=== PATIENT | male | born 1955 | race African-American/Black ===

== ENCOUNTER 2018-06-14 10:27 | Inpatient (IN) ==
[~2018-06-14 10:27] MED LIST: Iohexol 350 MG/ML 50 ML Vial (for Cath Lab) IVCONTRAST ONE
[2018-06-14] MEDS ORDERED: Heparin 10,000 UNITS/10 ML Vial (for IV use) ONE (10:54)
[2018-06-14] MEDS ORDERED: Heparin 10,000 UNITS/10 ML Vial (for IV use) IV.PUSH STA (10:58)
--- NOTE | 2018-06-14 10:58 | ED ---
HPI General Chief complaint: Chest Pain Stated complaint: Chest Pain Complaint Time Seen by Provider: 06/14/18 10:47 Source: patient Mode of arrival: ambulatory Limitations: no limitations History of Present Illness HPI narrative: 62yo M with PMH of HTN here with c/o chest pain since 5am this morning. Said chest pain is midsternal, severe and nonradiating. Associated with sob, nausea, diaphoresis. Denies any fever, cough, vomiting, abdominal pain, focal weakness or numbness. Related Data Allergies Allergy/AdvReac Type Severity Reaction Status Date / Time No Known Allergies Allergy Verified 06/14/18 10:41 Review of Systems ROS: all other systems reviewed are negative [facility] Medical History Medical History HTN (hypertension) (Acute) Social History Social History Substance History: No History of Abuse Second Hand Smoke Exposure: Yes Smoking Status: Current every day smoker Tobacco Type: Cigars How Often Do You Have a Drink Containing Alcohol: 4 or more times a week Recent Travel in [facility] within the Last 8 Weeks: No Recent Out of Country Travel within the Last 8 Weeks: No Exam Narrative Exam Narrative: GENERAL: 62yo M in severe distress. SKIN: Diaphorectic. HEAD: Atraumatic. Normocephalic. EYES: Pupils equal and round. No scleral icterus. No injection or drainage. ENT: No nasal bleeding or discharge. Mucous membranes pink and moist. NECK: Trachea midline. No JVD. CARDIOVASCULAR: Regular rate and rhythm. No murmur appreciated. RESPIRATORY: No accessory muscle use. Clear to auscultation. Breath sounds equal bilaterally. GASTROINTESTINAL: Abdomen soft, non-tender, nondistended. MUSCULOSKELETAL: No obvious deformities. No clubbing. No cyanosis. No edema. NEUROLOGICAL: Awake and alert. No obvious cranial nerve deficits. Motor grossly within normal limits. Normal speech. PSYCHIATRIC: Appropriate mood and affect; insight and judgment normal. Course Initial Documented Vital Signs Pulse Rate 83 06/14/18 10:33 Respiratory Rate 24 06/14/18 10:33 Blood Pressure 202/120 H 06/14/18 10:33 Pulse Oximetry 98 06/14/18 10:33 Last Documented Vital Signs Temperature 98.4 F 06/14/18 16:00 Pulse Rate 78 06/14/18 16:27 Respiratory Rate 14 06/14/18 16:00 Blood Pressure 104/70 06/14/18 16:00 Pulse Oximetry 96 06/14/18 16:00 Medical Decision Making MDM Narrative Medical decision making narrative: 62yo M with midsternal chest pain. He is very hypertensive and was sublingual nitro was ordered. EKG concerning for STEMI since pt is having active chest pain with nausea and diaphoresis. He may have ischemia secondary to his uncontrolled BP but since he is having active chest pain and ST elevation in anterior leads appears worst than prior, STEMI was called. Dr. Castañeda, sew on operator stationary engineer apprentice is at bedside and recommended nitroglycerin drip at the same time since pt is very hypertensive. Pt given aspirin and heparin bolus. Pt reevaluated at bedside and feels a little better. BP is now down to 168/104. Pt is on nitroglycerin drip. He is to go straight to cardiac pathology laboratory director. Medical Screen Exam Complete: Yes Emergency Medical Condition: Yes Differential Diagnosis Differential Diagnosis: STEMI vs. hypertensive emergency Lab Data Result diagrams: 06/14/18 15:15 06/14/18 15:15 Lab Results 06/14/18 06/14/18 06/14/18 Range/Units 10:55 10:55 10:55 WBC 9.9 (4.0-11.0) th/mm3 RBC 5.24 (4.50-5.90) mil/mm3 Hgb 17.7 H (13.0-17.0) gm/dL POC Hgb (Calc) (13.0-17.0) g/dL Hct 50.4 (39.0-51.0) % POC Hct (39-51.0) % MCV 96.1 (80.0-100.0) fL MCH 33.8 (27.0-34.0) pg MCHC 35.2 (32.0-36.0) % RDW 12.2 (11.6-17.2) % Plt Count 297 (150-450) th/mm3 MPV 7.9 (7.0-11.0) fL Neut % (Auto) 81.2 H (16.0-70.0) % Lymph % (Auto) 11.8 (9.0-44.0) % Ness % (Auto) 6.7 (0.0-8.0) % Eos % (Auto) 0.1 (0.0-4.0) % Baso % (Auto) 0.2 (0.0-2.0) % Neut # (Auto) 8.0 H (1.8-7.7) th/mm3 Lymph # (Auto) 1.2 (1.0-4.8) th/mm3 Ness # (Auto) 0.7 (0.0-0.9) th/mm3 Eos # (Auto) 0.0 (0.0-0.4) th/mm3 Baso # (Auto) 0.0 (0.0-0.2) th/mm3 WBC Differential . Differential Comment Auto diff final PT 10.4 (9.8-11.6) sec INR 1.0 Ratio APTT 23.8 L (24.3-30.1) sec POC Sodium (137-144) mmol/L Sodium (136-145) meq/L POC Potassium (3.6-5.0) mmol/L Potassium (3.5-5.1) meq/L POC Chloride (102-111) mmol/L Chloride (98-107) meq/L Carbon Dioxide (21.0-32.0) meq/L Anion Gap (5-15) meq/L POC BUN (5-21) mg/dL BUN (7-18) mg/dL Creatinine (0.60-1.30) mg/dL POC Creatinine (0.6-1.3) mg/dL Estimated GFR (>89) mL/min POC Glucose (68-110) mg/dL Random Glucose (74-106) mg/dL Calcium 9.2 (8.5-10.1) mg/dL Magnesium 2.4 (1.5-2.5) mg/dL Total Bilirubin (0.2-1.0) mg/dL AST (15-37) U/L ALT (12-78) U/L Alkaline Phosphatase (45-117) U/L Total Creatine Kinase 182 (39-308) U/L CK-MB (CK-2) 3.6 (0.5-3.6) ng/mL Troponin I Less than 0.02 L (0.02-0.05) ng/mL B-Natriuretic Peptide (0-100) pg/mL Total Protein (6.4-8.2) g/dL Albumin (3.4-5.0) g/dL Triglycerides (42-150) mg/dL Cholesterol (120-200) mg/dL LDL Cholesterol, Calc (0-99) mg/dL HDL Cholesterol (40.0-60.0) mg/dL Cholesterol/HDL Ratio Ratio 06/14/18 06/14/18 06/14/18 Range/Units 10:55 10:55 10:55 WBC (4.0-11.0) th/mm3 RBC (4.50-5.90) mil/mm3 Hgb (13.0-17.0) gm/dL POC Hgb (Calc) 16.7 (13.0-17.0) g/dL Hct (39.0-51.0) % POC Hct 49.0 (39-51.0) % MCV (80.0-100.0) fL MCH (27.0-34.0) pg MCHC (32.0-36.0) % RDW (11.6-17.2) % Plt Count (150-450) th/mm3 MPV (7.0-11.0) fL Neut % (Auto) (16.0-70.0) % Lymph % (Auto) (9.0-44.0) % Ness % (Auto) (0.0-8.0) % Eos % (Auto) (0.0-4.0) % Baso % (Auto) (0.0-2.0) % Neut # (Auto) (1.8-7.7) th/mm3 Lymph # (Auto) (1.0-4.8) th/mm3 Ness # (Auto) (0.0-0.9) th/mm3 Eos # (Auto) (0.0-0.4) th/mm3 Baso # (Auto) (0.0-0.2) th/mm3 WBC Differential Differential Comment PT (9.8-11.6) sec INR Ratio APTT (24.3-30.1) sec POC Sodium 135 L (137-144) mmol/L Sodium (136-145) meq/L POC Potassium 3.5 L (3.6-5.0) mmol/L Potassium (3.5-5.1) meq/L POC Chloride 95 L (102-111) mmol/L Chloride (98-107) meq/L Carbon Dioxide (21.0-32.0) meq/L Anion Gap (5-15) meq/L POC BUN 31 H (5-21) mg/dL BUN (7-18) mg/dL Creatinine (0.60-1.30) mg/dL POC Creatinine 1.9 H (0.6-1.3) mg/dL Estimated GFR (>89) mL/min POC Glucose 89 (68-110) mg/dL Random Glucose (74-106) mg/dL Calcium (8.5-10.1) mg/dL Magnesium (1.5-2.5) mg/dL Total Bilirubin (0.2-1.0) mg/dL AST (15-37) U/L ALT (12-78) U/L Alkaline Phosphatase (45-117) U/L Total Creatine Kinase (39-308) U/L CK-MB (CK-2) (0.5-3.6) ng/mL Troponin I (0.02-0.05) ng/mL B-Natriuretic Peptide 28 (0-100) pg/mL Total Protein (6.4-8.2) g/dL Albumin (3.4-5.0) g/dL Triglycerides 142 (42-150) mg/dL Cholesterol 227 H (120-200) mg/dL LDL Cholesterol, Calc 91 (0-99) mg/dL HDL Cholesterol 108.1 H (40.0-60.0) mg/dL Cholesterol/HDL Ratio 2.09 Ratio 06/14/18 06/14/18 Range/Units 15:15 15:15 WBC 8.8 (4.0-11.0) th/mm3 RBC 5.09 (4.50-5.90) mil/mm3 Hgb 17.0 (13.0-17.0) gm/dL POC Hgb (Calc) (13.0-17.0) g/dL Hct 48.8 (39.0-51.0) % POC Hct (39-51.0) % MCV 95.9 (80.0-100.0) fL MCH 33.3 (27.0-34.0) pg MCHC 34.8 (32.0-36.0) % RDW 12.2 (11.6-17.2) % Plt Count 302 (150-450) th/mm3 MPV 8.5 (7.0-11.0) fL Neut % (Auto) (16.0-70.0) % Lymph % (Auto) (9.0-44.0) % Ness % (Auto) (0.0-8.0) % Eos % (Auto) (0.0-4.0) % Baso % (Auto) (0.0-2.0) % Neut # (Auto) (1.8-7.7) th/mm3 Lymph # (Auto) (1.0-4.8) th/mm3 Ness # (Auto) (0.0-0.9) th/mm3 Eos # (Auto) (0.0-0.4) th/mm3 Baso # (Auto) (0.0-0.2) th/mm3 WBC Differential Differential Comment PT (9.8-11.6) sec INR Ratio APTT (24.3-30.1) sec POC Sodium (137-144) mmol/L Sodium 135 L (136-145) meq/L POC Potassium (3.6-5.0) mmol/L Potassium 4.1 (3.5-5.1) meq/L POC Chloride (102-111) mmol/L Chloride 98 (98-107) meq/L Carbon Dioxide 28.1 (21.0-32.0) meq/L Anion Gap 9 (5-15) meq/L POC BUN (5-21) mg/dL BUN 31 H (7-18) mg/dL Creatinine 1.53 H (0.60-1.30) mg/dL POC Creatinine (0.6-1.3) mg/dL Estimated GFR 56 L (>89) mL/min POC Glucose (68-110) mg/dL Random Glucose 86 (74-106) mg/dL Calcium 8.7 (8.5-10.1) mg/dL Magnesium 2.1 (1.5-2.5) mg/dL Total Bilirubin 1.3 H (0.2-1.0) mg/dL AST 32 (15-37) U/L ALT 27 (12-78) U/L Alkaline Phosphatase 117 (45-117) U/L Total Creatine Kinase (39-308) U/L CK-MB (CK-2) (0.5-3.6) ng/mL Troponin I (0.02-0.05) ng/mL B-Natriuretic Peptide (0-100) pg/mL Total Protein 7.9 (6.4-8.2) g/dL Albumin 3.9 (3.4-5.0) g/dL Triglycerides (42-150) mg/dL Cholesterol (120-200) mg/dL LDL Cholesterol, Calc (0-99) mg/dL HDL Cholesterol (40.0-60.0) mg/dL Cholesterol/HDL Ratio Ratio Imaging Data Radiologist's impression: Chest X-Ray 06/14/18 10:53 CONCLUSION: No acute cardiopulmonary abnormality is identified. ECG Data EKG Prior to Arrival: No Attestation: I personally reviewed and interpreted this ECG as follows: Interpretation: NSR 82bpm. 2mm ST elevation in V2, 3mm ST elevation V3. LVH. Mild ST depression inferior lead Discharge Plan Discharge Disposition Patient Disposition: 30 Still Patient Discharge Details Diagnosis: ST elevation myocardial infarction (STEMI) Physicians Team ED Provider: Pippa Corado Primary Care Provider: UNKNOWN, Attending Provider: Timothy Castañeda Other Providers: Romero Gamino ; Karma Berry Status ED Status: Left Department Discharge Information Discharge Date/Time: 06/14/18 11:30
[2018-06-14] MEDS ORDERED: Metoprolol Inj 5 MG/5 ML Vial ONE ×3 (11:00→12:14)
[2018-06-14] MEDS ORDERED: Nitroglycerin Drip Premix 50 MG/250 ML BOTTLE IV.CONT PRN (11:00)
[2018-06-14] MEDS ORDERED: Sod Chloride 0.9% Inj 1,000 ML IV.SIG SCH (11:00)
[2018-06-14 11:16] LABS: Baso % (Auto) 0.2 % (0.0-2.0); Eos % (Auto) 0.1 % (0.0-4.0); Hematocrit 50.4 % (39.0-51.0); Hemoglobin 17.7 gm/dL (13.0-17.0); Lymph # (Auto) 1.2 th/mm3 (1.0-4.8); Lymph % (Auto) 11.8 % (9.0-44.0); Mean Corpuscular HGB Conc 35.2 % (32.0-36.0); Mean Corpuscular Hemoglobin 33.8 pg (27.0-34.0); Mean Corpuscular Volume 96.1 fL (80.0-100.0); Mean Platelet Volume 7.9 fL (7.0-11.0); Mono # (Auto) 0.7 th/mm3 (0.0-0.9); Mono % (Auto) 6.7 % (0.0-8.0); Neut % (Auto) 81.2 % (16.0-70.0); Platelet Count 297 th/mm3 (150-450); Red Blood Count 5.24 mil/mm3 (4.50-5.90); Red Cell Distribution Width 12.2 % (11.6-17.2); White Blood Count 9.9 th/mm3 (4.0-11.0)
[2018-06-14] MEDS ORDERED: Heparin/NS PF Inj 1,000 ML ONE (11:28)
--- NOTE | 2018-06-14 11:29 | XR ---
EXAM DATE: 06/14/2018 11:24 AM EDT AGE/SEX: 62 years / Male INDICATIONS: Code STEMI. Chest pain. CLINICAL DATA: This is the patient's subsequent encounter. Patient reports that signs and symptoms h ave been present for 1 day and indicates a pain score of 7/10. MEDICAL/SURGICAL HISTORY: Cardiovascular disease. None. COMPARISON: . FINDINGS: Portable AP view of the chest demonstrates a normal-sized cardiac silhouette. No effusion, consolidat ion, or pneumothorax is identified. EKG lines overlie the patient. Bones and soft tissues demonstrate no acute abnormality. CONCLUSION: No acute cardiopulmonary abnormality is identified. Electronically signed by: Jamal Mares MD 06/14/2018 11:28 AM EDT
[2018-06-14 11:33] LABS: Activated Partial Thrombo Time 23.8 sec (24.3-30.1); Calcium 9.2 mg/dL (8.5-10.1); Magnesium 2.4 mg/dL (1.5-2.5); Prothrombin Time 10.4 sec (9.8-11.6)
[2018-06-14] MEDS ORDERED: fentaNYL Citrate Inj 100 MCG/2 ML Ampul ONE (11:35)
[2018-06-14 11:36] LABS: Creatine Kinase 182 U/L (39-308)
[2018-06-14] MEDS ORDERED: Lidocaine PF 1% Inj 30 ML Vial ONE (11:41)
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
[2018-06-14 11:49] LABS: Creatine Kinase MB 3.6 ng/mL (0.5-3.6)
[2018-06-14] MEDS ORDERED: Clevidipine Inj 25 MG/50 ML VIAL ONE (12:04)
--- NOTE | 2018-06-14 12:42 | CATHPROC ---
Needish HIS Report Study Information Study Number Admission Scheduled Start Study Start [id number] Jun 14 2018 10:27AM 06/14/2018 Jun 14 2018 11:31AM [place] [facility] Cardiac Catheterization Admit Source Facility Department Emergency department [facility] - Dentistry Professor Physician and Clinical Staff Initial Timothy Ma Head Of Human Resources Funmi Orellana,KAYLA Head Of Human Resources Caryn Ramírez,KAYLA Recorder Leyla Cruz,RT(R) (BS) Scrub Darlene Laguna RCIS TECH2 Procedures Performed Procedure Location (Site) Vessel Name Angiogram LV LV Ventricle Coronary Angiograms LCA Left Coronary Coronary Angiograms RCA Right Coronary L Heart Cath Equipment Time Doctor Of Naprapathy Description Size Mfg Part Number Used/Scraped TRANSDUCER, TRUWAVE [id number] 11:34 ASCENCIO OWENS * Used W/STOCKCOCK *[id number] *[id number] *[id number] PIGTAIL ANG. 145 INFINITI [id number] CATHETER *[id number] 12:13 DAIG/ST. MLEISSA MEDICAL ANGIOSEAL, FR6 VIP FR 6 Used *[id number] 11:34 [employer] BLANKET,WARM AIR CCL * Used *[id number] 11:34 [employer] PACK, CCL CUSTOM * Used *[id number] 11:34 Classting PACER PEN, SKIN DUAL W/ RULER * Used *[id number] 11:34 [employer] SHEATH, FR6.5 PRELUDE 11CM FR 6.5 038ACT Used *[id number] 11:34 [employer] MEDICAL WIRE, 3MMJ .035 180CM 180CM Used *[id number] 11:34 NAMIC MANIFOLD, 4 PORT * Used *[id number] 12:08 NAMIC TUBING, HIGH PRESSURE 48" 48" Used *[id number] 11:34 [employer]ED OMNIPAQUE, 350 MG, 150ML 150ML [id number] Used Equipment Model, Serial, Lot Number and Expiration Data Description Model Number Serial Number Lot Number Expiration Date ANGIOSEAL, FR6 VIP [id number] 01-16-2019 History: Allergies Allergy Reaction No Known Allergies History: Risk Factors Family History of Hypertension Dyslipidemia Previous [place] Previous Heart Failure Premature CAD Yes No No No No Prior Valve Prior PCI Prior CABG Surgery No No No Cerebrovascular Peripheral Artery Chronic Lung On Dialysis Diabetes Disease Disease Disease No No No Yes No History: Symptoms/Diagnosis Selection Items Chest pain History: Stress Tests Stress or Imaging Studies Performed No History: Other Current Smoker Method Yes Cigars Labs Hgb (g/dl) Hct (%) RBC (MIL/MM3) WBC (l/cumm) Platelets (thousands) 11.60-17.00 35.00-51.00 4.00-5.90 4.00-11.00 150.00-450.00 17.7 50.4 5.2 9.9 297 Glucose (mg/dl) BUN (mg/dl) Creatinine (mg/dl) BUN:Creatinine (1:x) 74.00-106.00 7.00-18.00 0.50-1.30 10.00-20.00 89 31 1.9 16.3 Na (meq/l) K (meq/l) 136.00-145.00 3.50-5.10 135 3.5 INR (PTT:PT) 0.90-1.10 1 Troponin I (ng/ml) CPK-MB (ng/ML) 0.02-0.05 0.50-3.60 0.02 3.6 Medication Medication Total Dose (Bolus/Oral) Medication Total Dosage/Unit 1% XYLOCAINE 20 mL LOPRESSOR 10 mg VERSED 2 mg Medications (Bolus/Oral) Medication Time Given Dosage/Unit Administered By Reason 06/14/2018 11:48:50 VERSED 1 mg Funmi Orellana AM 1 mg VERSED given in lab by Funmi Orellana RN via Peripheral IV. 06/14/2018 11:52:32 VERSED 1 mg Caryn Ramírez AM 1 mg VERSED given in lab by Caryn Ramírez RN via Peripheral IV. 06/14/2018 11:53:53 1% XYLOCAINE 20 mL Caryn Ramírez AM 20 mL 1% XYLOCAINE given in lab by Caryn Ramírez RN in Right Groin via Subcutaneous. 06/14/2018 12:09:45 LOPRESSOR 5 mg Funmi Orellana PM 5 mg LOPRESSOR given in lab by Funmi Orellana RN via Peripheral IV. 06/14/2018 12:15:54 LOPRESSOR 5 mg Funmi rOellana PM 5 mg LOPRESSOR given in lab by Funmi Orellana RN via Peripheral IV. Medication (Drip) Medication Time Given Dosage/Unit Concentration/Unit Diluent (ml) Solution 06/14/2018 12:03:39 CLEVIPREX 1 mg/hr 50 mg 100 PM 1 mg/hr CLEVIPREX given in lab by Funmi Orellana RN via Peripheral IV. Pump/Drip Flow = 2 ml/hr usi ng [Solution Name] with a concentration of 50 mg in 100 ml. 06/14/2018 12:05:11 CLEVIPREX 2 mg/hr 50 mg 100 PM 2 mg/hr CLEVIPREX given in lab by Funmi Orellana RN via Peripheral IV. Pump/Drip Flow = 4 ml/hr usi ng [Solution Name] with a concentration of 50 mg in 100 ml. 06/14/2018 12:08:00 CLEVIPREX 4 mg/hr 50 mg 100 PM 4 mg/hr CLEVIPREX given in lab by Funmi Orellana RN via Peripheral IV. Pump/Drip Flow = 8 ml/hr usi ng [Solution Name] with a concentration of 50 mg in 100 ml. 06/14/2018 12:10:52 CLEVIPREX 6 mg/hr 50 mg 100 PM 6 mg/hr CLEVIPREX given in lab by Funmi Orellana RN via Peripheral IV. Pump/Drip Flow = 12 ml/hr us ing [Solution Name] with a concentration of 50 mg in 100 ml. 06/14/2018 12:15:21 CLEVIPREX 8 mg/hr 50 mg 100 PM 8 mg/hr CLEVIPREX given in lab by Funmi Orellana RN via Peripheral IV. Pump/Drip Flow = 16 ml/hr us ing [Solution Name] with a concentration of 50 mg in 100 ml. 06/14/2018 11:49:22 IV Solutions 0 mL (IV) 1000 NaCl .9 AM Patient arrived on IV Solutions in Left Arm via Peripheral IV. Pump/Drip Flow = 30 ml/hr using NaCl . 9. 06/14/2018 11:47:20 NITROGLYCERIN DRIP 10 mcg/min 50 mg 250 D5W AM Patient arrived on 10 mcg/min NITROGLYCERIN DRIP in Right Antecubital via Peripheral IV. Pump/Drip Fl ow = 3 ml/hr using D5W with a concentration of 50 mg in 250 ml. 06/14/2018 11:49:34 NITROGLYCERIN DRIP 20 mcg/min 50 mg 250 D5W AM 20 mcg/min NITROGLYCERIN DRIP given in lab by Caryn Ramírez RN via Peripheral IV. Pump/Drip Flow = 6 ml/hr using D5W with a concentration of 50 mg in 250 ml. NITROGLYCERN DRIP 06/14/2018 12:10:06 0 units/hr 0 STOPPED PM 0 units/hr NITROGLYCERN DRIP STOPPED given in lab by Funmi Orellana, KAYLA. Pump/Drip Flow = 0 ml/hr us ing [Solution Name]. Initial Case Assessment Cardiovascular HR Rhythm NIBP Chest Pain 80 reg 175/133 0 Edema Present Skin color Skin None Normal Warm Dry Circulatory - Right Pulses Dorsalis Pedis Femoral 2 2 Scale (0,1,2,3,4,d) Circulatory - Left Pulses Dorsalis Pedis Femoral 2 2 Scale (0,1,2,3,4,d) Circulatory - Lower Extremities Color Lower Right Color Lower Left Normal Normal Neurological State Oriented to time-place- Alert Moves all extremities person Respiration - General Respiration Rate SpO2 (%) (B/min) 18 96 Chronological Log Time Study Chronological Log 11:33:06 Emergency Room notified that Dentistry Professor is ready. 11:45:08 Patient arrived via Bed. Patient arrived on 10 mcg/min NITROGLYCERIN DRIP in Right Antecubital via Peripheral IV. Pump/D rip Flow = 3 ml/hr 11:47:20 using D5W with a concentration of 50 mg in 250 ml. Vitals capture started with the following parameters, Patient=Adult, Interval=5 min, Initial Pr vcfuxl=610 mmHg, 11:47:56 Deflation Rate=5 mmHg, Cuff placed on Left Arm 11:48:03 Patient Name, D.O.B, / Armband Verified By R.N. 11:48:04 Consent signed by the physician and the patient and verified by the Dentistry Professor staff. 11:48:50 1 mg VERSED given in lab by Funmi Orellana, KAYLA via Peripheral IV. 11:49:06 Pre-op and post- op instructions given; patient acknowledges understanding of instructions. 11:49:09 Presedation assessment performed by Dentistry Professor RN. 11:49:11 Patient has been NPO for More than 6Hrs. 11:49:15 Patient Warmer Placed on the Table. 11:49:16 HR=88 bpm, XVCH=149/133 mmhg, Resp=16 B/min, Pain=0, Marco=10, Yap=2 11:49:17 Disposable Defibrillator Pads Placed On Patient. 11:49:18 Lm Prominences Protected 11:49:19 A # 20 IV was noted in the Antecubital (right). Grade = 0 11:49:21 A # 20 IV was noted in the Upper Arm (left). Grade = 0 11:49:22 Patient arrived on IV Solutions in Left Arm via Peripheral IV. Pump/Drip Flow = 30 ml/hr us ing NaCl .9. 11:49:25 History and physical on the chart or being dictated. Assessment: Initial Case, HR=80 BPM, Rhythm=reg, GSPI=979/133 mmhg, Chest Pain=0, Edema=None, Color=Normal, Skin = Warm, Dry Right Pulses: Erik Ped=2, Femoral=2 Left Pulses: Erik Ped=2, Femoral=2 11:49:26 Lower Right Extremities: Color=Normal Lower Left Extremities: Color=Normal Neurological: State=Alert, Ox3, MARTINEZ Respiration: Resp=18 B/min, SpO2=96 % 11:49:28 Bilateral groins prepped with 2% chlorhexidine, and draped after a 3 minute waiting time. 20 mcg/min NITROGLYCERIN DRIP given in lab by Caryn Ramírez RN via Peripheral IV. Pump/Drip F low = 6 ml/hr 11:49:34 using D5W with a concentration of 50 mg in 250 ml. 11:49:51 Reference ECG taken Time Out. Correct patient, correct procedure, correct physician, labs, allergies, and equipment verified with quality assurance/r&d lab technician 11:50:09 team present. Fire risk assesment completed (see hard stop sheet for coding). Time Out Conc urred by MD and individual staff in procedure. 11:51:02 Case Start 11:52:32 1 mg VERSED given in lab by Caryn Ramírez RN via Peripheral IV. 11:53:39 HR=93 bpm, FOZO=361/100 mmhg, PyC5=643.0 %, Resp=7 B/min, Pain=0, Marco=10, Yap=2 11:53:53 20 mL 1% XYLOCAINE given in lab by Caryn Ramírez RN in Right Groin via Subcutaneous. 11:55:12 Access site was Right Femoral Artery. 11:55:20 A SHEATH, FR6.5 PRELUDE 11CM FR 6.5 was advanced into the Fem Art (right) using the Percuta neous technique. A JL 5.0 INFINITI CATHETER FR 6 was advanced over a wire. OMNIPAQUE, 350 MG, 150ML 150ML was us ed for 11:55:38 injections. Recorded Pressure: Ao, HR=80, Condition=Condition 1 11:56:26 (Aorta) Ao 154/105/126 11:56:39 The LCA was injected and visualized at various angles. OMNIPAQUE, 350 MG, 150ML 150ML used . 11:59:08 HR=80 bpm, CFNE=762/112 mmhg, SpO2=95.0 %, Resp=20 B/min, Pain=0, Marco=10, Yap=2 11:59:08 Catheter was removed A JL 5.0 INFINITI CATHETER FR 6 was advanced over a wire. OMNIPAQUE, 350 MG, 150ML 150ML was us ed for 11:59:09 injections. 12:02:10 The RCA was injected and visualized at various angles. OMNIPAQUE, 350 MG, 150ML 150ML used . 12:03:33 HR=86 bpm, EBYP=354/126 mmhg, SpO2=95.0 %, Resp=15 B/min, Pain=0, Marco=10, Yap=2 1 mg/hr CLEVIPREX given in lab by Funmi Orellana, KAYLA via Peripheral IV. Pump/Drip Flow = 2 ml/ hr using [Solution 12:03:39 Name] with a concentration of 50 mg in 100 ml. 2 mg/hr CLEVIPREX given in lab by Funmi Orellana, KAYLA via Peripheral IV. Pump/Drip Flow = 4 ml/ hr using [Solution 12:05:11 Name] with a concentration of 50 mg in 100 ml. 12:05:53 Catheter was removed A PIGTAIL ANG. 145 INFINITI CATHETER FR 6 was advanced over a wire. OMNIPAQUE, 350 MG, 150ML 15 0ML was 12:06:37 used for injections. 4 mg/hr CLEVIPREX given in lab by Funmi Orellana RN via Peripheral IV. Pump/Drip Flow = 8 ml/ hr using [Solution 12:08:00 Name] with a concentration of 50 mg in 100 ml. Recorded Pressure: LV, HR=93, Condition=Condition 1 12:08:18 (Left Ventricle) LV 168/5/8 12:08:38 HR=86 bpm, GBMN=054/115 mmhg, SpO2=98.0 %, Resp=13 B/min, Pain=0, Marco=10, Yap=2 12:09:27 The LV was injected at 8 cc/sec for a total of 20. OMNIPAQUE, 350 MG, 150ML 150ML used. 12:09:45 5 mg LOPRESSOR given in lab by Funmi Orellana RN via Peripheral IV. 0 units/hr NITROGLYCERN DRIP STOPPED given in lab by Funmi Orellana RN. Pump/Drip Flow = 0 ml /hr using 12:10:06 [Solution Name]. Recorded Pressure: LV, Ao, HR=88, Condition=Condition 1 12:10:07 (Left Ventricle) LV 168/5/9, (Aorta) Ao 175/101/132 6 mg/hr CLEVIPREX given in lab by Funmi Orellana RN via Peripheral IV. Pump/Drip Flow = 12 ml /hr using [Solution 12:10:52 Name] with a concentration of 50 mg in 100 ml. 12:13:37 HR=85 bpm, ZIIM=354/96 mmhg, FzD8=050.0 %, Resp=16 B/min, Pain=0, Marco=10, Yap=2 8 mg/hr CLEVIPREX given in lab by Funmi Orellana RN via Peripheral IV. Pump/Drip Flow = 16 ml /hr using [Solution 12:15:21 Name] with a concentration of 50 mg in 100 ml. 12:15:54 5 mg LOPRESSOR given in lab by Funmi Orellana RN via Peripheral IV. 12:18:34 HR=81 bpm, CRCY=379/100 mmhg, MjF2=976.0 %, Resp=18 B/min, Pain=0, Marco=10, Yap=2 12:19:52 An injection in the Fem Art (right) was made through the SHEATH, FR6.5 PRELUDE 11CM FR 6.5. 12:20:10 Vitals capture stopped. Vitals capture started with the following parameters, Patient=Adult, Interval=2 min, Initial Pr oxferc=842 mmHg, 12:20:25 Deflation Rate=5 mmHg, Cuff placed on Left Arm 12:20:41 ANGIOSEAL, FR6 VIP FR 6 placement in the Fem Art (right) 12:21:44 HR=80 bpm, WQPW=041/111 mmhg, SpO2=94.0 %, Resp=15 B/min, Pain=0, Marco=10, Yap=2 12:23:04 HR=84 bpm, SDNH=265/106 mmhg, SpO2=97.0 %, Resp=10 B/min, Pain=0, Marco=10, Yap=2 12:23:13 Case End (Physician broke scrub) 12:23:28 Catheter(s) removed without difficulty 12:24:07 Sterile dressing applied to site 12:24:08 No case complications noted. 12:24:14 Bedside Report will be given. 12:24:15 Implantable Device card placed in patient's chart. 12:24:22 A Left Heart Cath was performed. 12:25:01 HR=84 bpm, FXMA=706/97 mmhg, Resp=10 B/min, Pain=0, Marco=10, Yap=2 12:27:02 HR=85 bpm, UOEF=895/97 mmhg, Resp=14 B/min, Pain=0, Marco=10, Yap=2 12:29:03 HR=84 bpm, EYVR=799/100 mmhg, SpO2=87.0 %, Resp=10 B/min, Pain=0, Marco=10, Yap=2 12:31:03 HR=86 bpm, QHDJ=388/95 mmhg, SpO2=97.0 %, Resp=17 B/min, Pain=0, Marco=10, Yap=2 12:33:02 HR=81 bpm, WWJC=772/97 mmhg, SpO2=95.0 %, Resp=16 B/min, Pain=0, Marco=10, Yap=2 12:35:01 HR=81 bpm, CVHH=937/95 mmhg, SpO2=96.0 %, Resp=16 B/min, Pain=0, Marco=10, Yap=2 12:37:02 HR=82 bpm, VJIJ=334/92 mmhg, SpO2=97.0 %, Resp=15 B/min, Pain=0, Marco=10, Yap=2 12:39:01 HR=83 bpm, XRAA=690/99 mmhg, SpO2=97.0 %, Resp=14 B/min, Pain=0, Marco=10, Yap=2 12:41:01 HR=84 bpm, FRES=165/101 mmhg, SpO2=98.0 %, Resp=14 B/min, Pain=0, Marco=10, Yap=2 12:42:13 Vitals capture stopped. 12:44:16 [facility] End Study - Contrast Media Used In Study Contrast Total Opened (mL) Total Used (mL) Total Wasted (mL) Omnipaque 45 45 0 End Study - Maximum Contrast Load Max Contrast Load (mL) 167.1 End Study - Radiation Exposure Fluoro Time (minutes) 3.0 End Study - Sheaths Sheaths Pulled By Sheath Hold Time (min) Timothy Castañeda End Study - Patient Disposition Complications Transferred To Interventional Outcome No Critical Care Bed No attempt made
--- NOTE | 2018-06-14 13:25 | P.CONCC ---
History of Present Illness Service: Critical care Consult date: 06/14/18 Requesting Physician: Timothy Castañeda Reason for Consult: Hypertensive emergency Primary Care Provider: UNKNOWN Chief Complaint: Chest pain, Probable STEMI History of Present Illness: Patient is a 62-year-old -[place] male with history of uncontrolled hypertension, alcohol abuse, probable dependence who presented to the emergency department with chest pain. Patient admits that his blood pressure is uncontrolled he is supposed to be on 5 medication but is really not compliant. He also has history of emphysema based on CT scan. EKG showed sinus rhythm, LVH , ST elevation in V2, V3, and V4. Patient was hypertensive with blood pressure in 202/120, started on nitroglycerin infusion and given IV metoprolol. For probable acute STEMI versus early repolarization changes and Dr. Castañeda was emergently contacted. He also received aspirin. Emergently taken to the [facility] showed 50% LAD lesion but no acute obstruction. Post catheterization patient was moved to the CVICU on Cleviprex and critical care medicine was consulted I evaluated the patient in the ICU. Systolic blood pressure is now in 160s his chest pain is improved he is currently on Cleviprex infusion. Patient had been placed on metoprolol 50 mg twice daily and Norvasc 10 mg daily. No RENATA inhibitors due to acute kidney injury. Patient gives a history that he had was on clonidine before but in general had been noncompliant with all the medications. I will place him on clonidine and use as needed IV labetalol to wean Cleviprex. Lipid profile had been ordered. He will be watched closely for alcohol withdrawal as he drinks 6 beers +3-4 drinks of vodka almost daily. Initiate CIWA protocol if necessary Review of Systems All other systems reviewed negative except as stated in HPI PMFSH - History History Provided By: Patient - Medical / Surgical Hx Neg / Unobtainable Medical Problems Denied: Yes - Medical History Medical History: Medical History (Last Updated 06/14/18 @ 10:58 by Sushila Lopez) HTN (hypertension) - Tobacco History Tobacco Use In Past 30 Days: Yes Smoking Status: Current every day smoker Tobacco Type: Cigars - Alcohol History How Often Do You Have a Drink Containing Alcohol: 4 or more times a week - Substance Use History Substance History: No History of Abuse - Travel History Recent Travel in the [facility] Within the Last 8 Weeks: No Recent Travel Out of the Country Within the Last 8 Weeks: No - Immunization History Tetanus Immunization: Unsure Medications and Allergies Active Medications: Active Medications Amlodipine Besylate (Norvasc) 10 mg PO DAILY SHANNON Aspirin (Ecotrin) 81 mg PO DAILY SHANNON Sodium Chloride (Ns Inj) 1,000 mls @ 30 mls/hr IV.SIG .Q24H SHANNON Stop: 06/15/18 10:59 Last Admin: 06/14/18 11:34 Dose: 30 mls/hr Nitroglycerin/Dextrose (Nitroglycerin Drip Premix) 50 mg in 250 mls @ 0 mls/hr IV.CONT TITRATE PRN; Protocol PRN Reason: Per Protocol Last Titration: 06/14/18 12:10 Dose: 0 mcg/min, 0 mls/hr Sodium Chloride (Ns Inj) 1,000 mls @ 100 mls/hr IV.CONT .Q10H SHANNON Metoprolol Tartrate (Lopressor) 50 mg PO BID SHANNON Sodium Chloride (Ns Flush) 2 ml IV.FLUSH PRN PRN PRN Reason: FLUSH AFTER USING IV ACCESS Sodium Chloride (Ns Flush) 2 ml IV.FLUSH PRN PRN PRN Reason: FLUSH AFTER USING IV ACCESS Allergies Allergy/AdvReac Type Severity Reaction Status Date / Time No Known Allergies Allergy Verified 06/14/18 10:41 Physical Exam Vital signs: Vital Signs 06/14/18 10:33 06/14/18 10:45 06/14/18 11:26 Pulse Rate 83 76 Respiratory Rate 24 20 Blood Pressure 202/120 H 168/104 H Pulse Oximetry 98 100 100 Intake & Output 06/13/18 06/14/18 06/14/18 18:59 06:59 18:59 Weight 63.503 kg Narrative: GENERAL: 62 yo -[place] male lying in bed in mild distress SKIN: Dry HEAD: Atraumatic. Normocephalic. EYES: Pupils equal and round. ENT: No nasal bleeding or discharge. NECK: Trachea midline. No JVD. CARDIOVASCULAR: Regular rate and rhythm. No murmur appreciated. No chest wall tenderness. Hypotensive on Cleviprex RESPIRATORY: Clear to auscultation. Breath sounds equal bilaterally. GASTROINTESTINAL: Abdomen soft, non-tender, nondistended. MUSCULOSKELETAL: No obvious deformities. No clubbing. NEUROLOGICAL: Awake and alert. No obvious cranial nerve deficits. Motor grossly within normal limits. Normal speech. Septic Shock Reassessment Septic shock perfusion: reassessment completed Assessment and Plan - Assessment and Plan Plan: ASSESSMENT: Chest pain rule out ACS Hypertensive emergency Kidney injury Hypokalemia Alcohol abuse/dependence Emphysema Smoking PLAN: NEURO: -Watch closely for alcohol withdrawal patient admits to drinking a sixpack beer +3-4 drinks of vodka most days a week -Advised to completely quit drinking -CIWA if there is evidence of withdrawal -Supplement multivitamin thiamine RESP: -DuoNeb every 2 hours as needed -Advised to quit smoking CV: -On arrival blood pressure was 202/120 and was started on nitro infusion -Emergently taken to [facility] for probable STEMI, but catheter showed 50% LAD lesion without obstruction -Currently off nitroglycerin gtt and on Cleviprex gtt. -Started on amlodipine 10 mg daily and metoprolol 50 mg twice daily -Cannot use diuretics or RENATA inhibitors due to acute kidney injury -Normal saline IV fluids at 100 ml per hour -2D echo serial troponins -Check lipid profile, statins if indicated -Continue aspirin -Patient admits to noncompliance with blood pressure medications GI: -Cardiac diet, famotidine : -Monitor renal function closely. Strict intake output -Check renal ultrasound -Normal saline at 100 mL/h ID: -No indication for antibiotics HEME: -Monitor CBC, coags ENDO: -Electrolyte replacement per protocol PROPH: -Bilateral lower extremity SCDs. Lovenox from am/IV famotidine LINES: -Utilize peripheral IVs CC time 35 min Code Status: Full Discussed Condition With: Dr. Castañeda
[2018-06-14] MEDS: amLODIPine 10 MG Tablet PO SCH (13:35)
[2018-06-14] MEDS: Sod Chloride 0.9% Inj 1,000 ML IV.CONT SCH ×2 (13:36→23:06)
[2018-06-14] MEDS: Metoprolol Tartrate 50 MG Tablet PO SCH ×2 (13:36→23:06)
[2018-06-14] MEDS ORDERED: Potassium Chloride 25 MEQ Effervescent Tablet PO PRN (13:37)
[2018-06-14] MEDS ORDERED: Magnesium Oxide 400 MG Tablet PO PRN (13:37)
[2018-06-14] MEDS ORDERED: Potassium Phosphate Inj 30 MMOL in Sodium Chlor 0.9% Inj 250 ML IV.SIG PRN (13:37)
[2018-06-14] MEDS ORDERED: Potassium Chlor 40 mEq Premix 40 MEQ/100 ML PIGGYBACK IV.SIG PRN ×2 (13:37)
[2018-06-14] MEDS ORDERED: Sodium Phosphate Inj 30 MMOL in Sodium Chlor 0.9% Inj 250 ML IV.SIG PRN (13:37)
[2018-06-14] MEDS ORDERED: Potassium Chlor 20 mEq Premix 20 MEQ/100 ML PIGGYBACK IV.SIG PRN ×2 (13:37)
[2018-06-14] MEDS ORDERED: Magnesium Sulfate Inj 2 GM in Sodium Chlor 0.9% Inj 96 ML IV.SIG PRN (13:37)
[2018-06-14] MEDS ORDERED: Potassium Phosphate 500 MG Soluble Tablet PO PRN ×2 (13:37)
[2018-06-14] MEDS ORDERED: Magnesium Sulfate Inj 4 GM in Sodium Chlor 0.9% Inj 92 ML IV.SIG PRN (13:37)
[2018-06-14] MEDS ORDERED: Clevidipine Inj 25 MG/50 ML VIAL IV.CONT PRN (13:38)
[2018-06-14] MEDS ORDERED: Labetalol HCl Inj 100 MG/20 ML Vial IV.PUSH PRN (13:39)
--- NOTE | 2018-06-14 15:08 | MA ---
cc: Timothy Castañeda MD DATE: 06/14/2018 PROCEDURES PERFORMED: Left heart catheterization, left ventriculography, coronary angiography, right femoral angiography with Angio-Seal placement. BRIEF HISTORY: Stan Adams is a 62-year-old man with longstanding hypertension. From his history, it sounds like his blood pressure is poorly controlled. He presented to the ER with acute onset of chest pain at 5:30 in the morning with extremely severe high blood pressure. He had been treated with IV metoprolol and nitroglycerin before arrival to the catheterization lab. On arrival to the catheterization lab, he was still hypertensive. The blood pressure, however, was improved, and the chest pain was already dramatically better. He was prepped and draped in sterile fashion and given a total of 2 mg of IV Versed for sedation. Using 1% lidocaine for local anesthesia, a single stick was required to access the right femoral artery and a 6-[place] sheath placed. Coronary angiography was completed using a 5 Joann for the left coronary artery and a 3DRC for the right coronary artery. I then used an angled pigtail catheter to measure left ventricular pressure followed by left ventriculography and then a pullback. Cleviprex was started. Nitroglycerin was turned off. He received a total of 10 mg of IV metoprolol in the animal laboratory technician and ended up on 8 mcg Cleviprex drip with blood pressures about 140/90-140/80. Chest pain was gone. Angiography did not show any obstructive lesions needing intervention. Angiography was then obtained of the right femoral artery via the sheath followed by uncomplicated Angio-Seal closure with good hemostasis. There were no complications. Total contrast load was 45 mL. HEMODYNAMICS: Left ventricular pressure was 168/5 with an end-diastolic pressure of 9. Aortic pressure is 175/101 with a mean of 132. LEFT VENTRICULOGRAPHY: Left ventriculography shows normal left ventricular function. Estimated ejection fraction is 70%. There are no regional wall motion abnormalities seen. There is no mitral regurgitation seen. I panned over the aorta, and I do not see any dissection of the aorta. CORONARY ANGIOGRAPHY: Left main coronary artery is large and normal appearing. LAD is a large vessel and has a smooth mid stenosis that appears to be about 40%, no worse than 50%. There are 3 separate diagonals. First diagonal is very small and irregular. Second diagonal comes out of the 40% lesion, has about 10% ostial narrowing. The third diagonal is the largest diagonal. This bifurcates. It has about 20% mid irregularity. The remainder of the LAD is tortuous, but normal appearing and does wrap around the LV apex. There is a very small ramus intermediate branch vessel which appears normal. Circumflex artery consists of a large obtuse marginal branch, which appears normal and a very small distal circumflex vessel. The right coronary artery is noted to be dominant and markedly tortuous. It gives off a fairly short PDA branch and a very large posterolateral branch that bifurcates. The distal right coronary artery has an eccentric 30% stenosis with appearance of ulceration. Note that on the left coronary injections, the LAD has sluggish flow relative to the circumflex vessel. CONCLUSIONS: 1. Suspect malignant hypertension. 2. Normal left ventricular end-diastolic pressure. 3. Normal left ventricular systolic function. 4. Mild 2-vessel coronary artery disease with 40%-50% stenosis of the mid LAD and 30% stenosis of the distal right coronary artery. PLAN: Medical management. The patient is currently on a Cleviprex drip at 8 mcg and has received 15 mg total of IV metoprolol. I plan to start amlodipine 10 mg p.o. now and daily, metoprolol 50 mg p.o. now and b.i.d. He has been instructed to quit smoking. We will continue baby aspirin daily. MD SHERI Hurley/ulises , 12:35 PM , 12:46 PM MICHAEL
[2018-06-14 15:56] LABS: Hematocrit 48.8 % (39.0-51.0); Mean Corpuscular HGB Conc 34.8 % (32.0-36.0); Mean Corpuscular Hemoglobin 33.3 pg (27.0-34.0); Mean Corpuscular Volume 95.9 fL (80.0-100.0); Mean Platelet Volume 8.5 fL (7.0-11.0); Platelet Count 302 th/mm3 (150-450); Red Blood Count 5.09 mil/mm3 (4.50-5.90); Red Cell Distribution Width 12.2 % (11.6-17.2); White Blood Count 8.8 th/mm3 (4.0-11.0)
[2018-06-14] MEDS: Multivitamin Inj 10 ML, Thiamine Inj 100 MG, Folic Acid Inj 1 MG in Sodium Chlor 0.9% I... IV.SIG SCH (15:59)
[2018-06-14 16:13] LABS: Chol/HDL Ratio 2.09 Ratio; HDL Cholesterol 108.1 mg/dL (40.0-60.0)
[2018-06-14 16:33] LABS: Alkaline Phosphatase 117 U/L (45-117); Total Protein 7.9 g/dL (6.4-8.2)
[2018-06-14 16:39] LABS: Alanine Aminotransferase 27 U/L (12-78); Albumin 3.9 g/dL (3.4-5.0); Anion Gap 9 meq/L (5-15); Aspartate Aminotransferase 32 U/L (15-37); Blood Urea Nitrogen 31 mg/dL (7-18); Calcium 8.7 mg/dL (8.5-10.1); Carbon Dioxide 28.1 meq/L (21.0-32.0); Chloride 98 meq/L (98-107); Glomerular Filtration Rate 56 mL/min (>89); Glucose,Random 86 mg/dL (74-106); Magnesium 2.1 mg/dL (1.5-2.5); Potassium 4.1 meq/L (3.5-5.1); Sodium 135 meq/L (136-145)
--- NOTE | 2018-06-14 18:00 | ECHRPT ---
Indication: Hypertensive Heart Disease CONCLUSIONS The left ventricular systolic function is normal with an estimated ejection fraction in the range of 55-60%. There is assymetric septal hypertrophy. Normal left ventricular size. Mitral annular calcification is present. Mild mitral valve regurgitation. Aortic valve sclerosis is present. There is trace tricuspid valve regurgitation. BP: / HR: Rhythm: Sinus MEASUREMENTS (Male / Female) Normal Values Technical Quality:Fair 2D ECHO LV Diastolic Diameter PLAX 3.7 cm 4.2 - 5.9 / 3.9 - 5.3 cm LV Systolic Diameter PLAX 2.6 cm IVS Diastolic Thickness 1.9 cm 0.6 - 1.0 / 0.6 - 0.9 cm LVPW Diastolic Thickness 1.0 cm 0.6 - 1.0 / 0.6 - 0.9 cm LV Relative Wall Thickness 0.8 RV Internal Dim ED PLAX 2.8 cm LVOT Diameter 2.1 cm Aortic Root Diameter 2.6 cm LA Systolic Diameter LX 3.1 cm 3.0 - 4.0 / 2.7 - 3.8 cm M-MODE Aortic Root Diameter MM 3.0 cm LA Systolic Diameter MM 3.1 cm LA Ao Ratio MM 1.0 AV Cusp Separation MM 2.0 cm DOPPLER AV Peak Velocity 107.0 cm/s AV Peak Gradient 4.6 mmHg LVOT Peak Velocity 103.0 cm/s LVOT Peak Gradient 4.2 mmHg AV Area Cont Eq pk 3.3 cm MV Area PHT 2.3 cm Mitral E Point Velocity 56.3 cm/s Mitral A Point Velocity 85.4 cm/s Mitral E to A Ratio 0.7 LV E' Lateral Velocity 9.1 cm/s Mitral E to LV E' Lateral Ratio 6.2 LV E' Septal Velocity 6.0 cm/s Mitral E to LV E' Septal Ratio 9.3 FINDINGS LEFT VENTRICLE The left ventricular systolic function is normal with an estimated ejection fraction in the range of 55-60%. There is assymetric septal hypertrophy. Normal left ventricular size. RIGHT VENTRICLE Normal right ventricular size and systolic function. LEFT ATRIUM The left atrial size is normal. RIGHT ATRIUM The right atrial size is normal. ATRIAL SEPTUM Normal atrial septal thickness without atrial level shunting by limited color doppler interrogation. MITRAL VALVE Mitral annular calcification is present. Mild mitral valve regurgitation. AORTIC VALVE Aortic valve sclerosis is present. TRICUSPID VALVE Structurally normal tricuspid valve. There is trace tricuspid valve regurgitation. PULMONARY VALVE No pulmonary valve regurgitation or stenosis. VESSELS The inferior vena cava is normal in size. PERICARDIUM No pericardial effusion. Flor Wu MD, FACC (Electronically Signed) Final Date:14 June 2018 18:00
--- NOTE | 2018-06-14 22:42 | US ---
EXAM DATE: 06/14/2018 10:35 PM EDT AGE/SEX: 62 years / Male INDICATIONS: Increased lab values. CLINICAL DATA: This is the patient's initial encounter. Patient reports that signs and symptoms have been present for 1 day and indicates a pain score of 0/10. MEDICAL/SURGICAL HISTORY: Hypertension. None. COMPARISON: No prior exams available for comparison. MEASUREMENTS: Right Kidney:__8.0 x 5.2 x 4.0 cm Left Kidney:__9.1 x 3.5 x 4.7 cm FINDINGS: Right Kidney: Increased echotexture. No mass or hydronephrosis. Left Kidney: Increased echotexture. No mass or hydronephrosis. Bladder: Within normal limits given the degree of distension. Other: None. CONCLUSION: 1. Increased echotexture characteristic of medical renal disease. No hydronephrosis. No perinephric fluid. Bladder unremarkable. Electronically signed by: Rashard Artis MD 06/14/2018 10:40 PM EDT
--- NOTE | 2018-06-14 23:30 | ECG ---
Date Performed: 06/14/2018 Time Performed: 14:07:54 PTAGE: 62 years EKG: Sinus rhythm Possible right atrial abnormality Possible septal infarct - age undetermined Anterior ST-Elevations Abnormal ECG PRIOR ECG 06/14/18: Compared to PREVIOUS TRACING , Interval evolution of previously noted Anterior ST-Elevations DOCTOR: Antonio Webster Interpretating Date/Time 06/14/2018 23:30:16
--- NOTE | 2018-06-14 23:52 | ECG ---
Date Performed: 06/14/2018 Time Performed: 10:49:37 PTAGE: 62 years EKG: Sinus rhythm RIGHT ATRIAL ENLARGEMENT VOLTAGE CRITERIA FOR LVH POSSIBLE SEPTAL MYOCARDIAL INFARCTION ST ELEVATION , CONSIDER ANTERIOR INJURY ACUTE TX NO PREVIOUS TRACING DOCTOR: Antonio Webster Interpretating Date/Time 06/14/2018 23:50:17
[2018-06-15 04:32] LABS: Baso % (Auto) 0.5 % (0.0-2.0); Eos # (Auto) 0.1 th/mm3 (0.0-0.4); Eos % (Auto) 0.9 % (0.0-4.0); Hematocrit 38.4 % (39.0-51.0); Hemoglobin 13.5 gm/dL (13.0-17.0); Lymph # (Auto) 2.1 th/mm3 (1.0-4.8); Lymph % (Auto) 26.6 % (9.0-44.0); Mean Corpuscular HGB Conc 35.2 % (32.0-36.0); Mean Corpuscular Volume 96.5 fL (80.0-100.0); Mean Platelet Volume 8.2 fL (7.0-11.0); Mono # (Auto) 0.7 th/mm3 (0.0-0.9); Mono % (Auto) 9.3 % (0.0-8.0); Neut # (Auto) 5.1 th/mm3 (1.8-7.7); Neut % (Auto) 62.7 % (16.0-70.0); Platelet Count 223 th/mm3 (150-450); Red Blood Count 3.98 mil/mm3 (4.50-5.90); Red Cell Distribution Width 12.1 % (11.6-17.2); White Blood Count 8.1 th/mm3 (4.0-11.0)
[2018-06-15 05:02] LABS: Alanine Aminotransferase 18 U/L (12-78); Albumin 2.8 g/dL (3.4-5.0); Alkaline Phosphatase 84 U/L (45-117); Anion Gap 9 meq/L (5-15); Aspartate Aminotransferase 16 U/L (15-37); Blood Urea Nitrogen 32 mg/dL (7-18); Calcium 7.9 mg/dL (8.5-10.1); Carbon Dioxide 24.9 meq/L (21.0-32.0); Chloride 103 meq/L (98-107); Glomerular Filtration Rate 63 mL/min (>89); Glucose,Random 76 mg/dL (74-106); Potassium 3.6 meq/L (3.5-5.1); Sodium 137 meq/L (136-145); Total Protein 5.6 g/dL (6.4-8.2); Troponin I 0.03 ng/mL (0.02-0.05)
[2018-06-15] MEDS: amLODIPine 10 MG Tablet PO SCH (08:38)
[2018-06-15] MEDS: Metoprolol Tartrate 50 MG Tablet PO SCH (08:38)
[2018-06-15] MEDS: Enoxaparin Inj 30 MG/0.3 ML Syringe SQ SCH (08:38)
[2018-06-15] MEDS: Sod Chloride 0.9% Inj 1,000 ML IV.CONT SCH ×2 (08:39→18:31)
--- NOTE | 2018-06-15 09:49 | P.PNIM ---
Subjective Interval history: Chief Complaint: Chest pain, Probable STEMI History of Present Illness: Patient is a 62-year-old -[place] male with history of uncontrolled hypertension, alcohol abuse, probable dependence who presented to the emergency department with chest pain. Patient admits that his blood pressure is uncontrolled he is supposed to be on 5 medication but is really not compliant. He also has history of emphysema based on CT scan. EKG showed sinus rhythm, LVH , ST elevation in V2, V3, and V4. Patient was hypertensive with blood pressure in 202/120, started on nitroglycerin infusion and given IV metoprolol. For probable acute STEMI versus early repolarization changes and Dr. Castañeda was emergently contacted. He also received aspirin. Emergently taken to the [facility] showed 50% LAD lesion but no acute obstruction. Post catheterization patient was moved to the CVICU on Cleviprex and critical care medicine was consulted I evaluated the patient in the ICU. Systolic blood pressure is now in 160s his chest pain is improved he is currently on Cleviprex infusion. Patient had been placed on metoprolol 50 mg twice daily and Norvasc 10 mg daily. No RENATA inhibitors due to acute kidney injury. Patient gives a history that he had was on clonidine before but in general had been noncompliant with all the medications. I will place him on clonidine and use as needed IV labetalol to wean Cleviprex. Lipid profile had been ordered. He will be watched closely for alcohol withdrawal as he drinks 6 beers +3-4 drinks of vodka almost daily. Initiate CIWA protocol if necessary 06-15 patient has been transferred to our service today from critical care. Patient's blood pressure is too low will have to back off on some of the medications Discussed with RN and patient Denies any chest pain or palpitations at this time Has a history of being completely medically malignantly noncompliant Does not see doctors Drinks daily Smokes cigarettes Adjust medications decrease metoprolol Physical Exam Vital signs: Vital Signs 06/14/18 10:33 06/14/18 10:45 06/14/18 11:26 Temperature Pulse Rate 83 76 Respiratory Rate 24 20 Blood Pressure 202/120 H 168/104 H Pulse Oximetry 98 100 100 06/14/18 14:23 06/14/18 16:00 06/14/18 16:27 Temperature 98.4 F Pulse Rate 73 78 Respiratory Rate 14 14 Blood Pressure 160/88 H 104/70 Pulse Oximetry 96 96 06/14/18 20:00 06/14/18 21:27 06/15/18 00:00 Temperature 98.6 F 97.9 F Pulse Rate 74 77 Respiratory Rate 18 20 Blood Pressure 127/74 113/70 Pulse Oximetry 99 97 06/15/18 04:00 06/15/18 07:00 06/15/18 07:25 Temperature 98.6 F 98.4 F Pulse Rate 66 63 61 Respiratory Rate 18 16 Blood Pressure 114/66 117/71 Pulse Oximetry 97 06/15/18 09:00 Temperature Pulse Rate 64 Respiratory Rate Blood Pressure Pulse Oximetry Intake & Output 06/14/18 06/15/18 06/15/18 18:59 06:59 18:59 Intake Total 1020 / 1020 1720 / 1720 1511 / 1511 Output Total 850 / 850 Balance 170 / 170 1720 / 1720 1511 / 1511 Weight 63.503 kg 63.5 kg Intake: IV 420 / 420 1000 / 1000 1511 / 1511 Cleviprex Inj 25 mg In 50 ml @ 50 / 50 1 MG/HR 2 mls/hr IV.CONT TITRATE PRN Rx#:[id number] Nitroglycerin Drip Premix 50 mg 20 / 20 In 250 ml @ Per Protocol IV. CONT TITRATE PRN Rx#:[id number] NS Inj 1,000 ML @ 100 mls/hr IV 1000 / 1000 1000 / 1000 .CONT .Q10H [facility] Rx#:[id number] MVI-12 Inj 10 ML Thiamine Inj 511 / 511 100 MG Folvite Inj 1 MG In NS Inj 500 ML @ 125 mls/hr IV.SIG Q24H [facility] Rx#:[id number] KCl 20 mEq Premix Inj 20 meq In 50 / 50 100 ml @ 50 mls/hr IV.SIG Q2H PRN Rx#:[id number] NS Inj 1,000 ML @ 30 mls/hr IV. 300 / 300 SIG .Q24H [facility] Rx#:[id number] Oral 600 / 600 720 / 720 Output: Urine 850 / 850 Other: # Voids 2 Date of Last Bowel Movement 06/14/18 06/15/18 06/15/18 # Bowel Movements 2 Narrative: GENERAL: 62 yo -[place] male lying in bed in mild distress SKIN: Dry no obvious rashes. Warm and dry HEAD: Atraumatic. Normocephalic. EYES: Pupils equal and round. EOMI ENT: No nasal bleeding or discharge. Tongue is midline oropharynx is clear NECK: Trachea midline. No JVD. Supple CARDIOVASCULAR: Regular rate and rhythm. No murmur appreciated. No chest wall tenderness. S1-S2 no S3 or S4 RESPIRATORY: Clear to auscultation. Breath sounds equal bilaterally. GASTROINTESTINAL: Abdomen soft, non-tender, nondistended. MUSCULOSKELETAL: No obvious deformities. No clubbing. NEUROLOGICAL: Awake and alert. No obvious cranial nerve deficits. Motor grossly within normal limits. Normal speech. Results - Labs CBC & Chem 7: 06/15/18 04:01 06/15/18 04:01 Laboratory Results - last 24 hr 06/14/18 06/14/18 06/14/18 10:55 10:55 10:55 WBC 9.9 RBC 5.24 Hgb 17.7 H POC Hgb (Calc) Hct 50.4 POC Hct MCV 96.1 MCH 33.8 MCHC 35.2 RDW 12.2 Plt Count 297 MPV 7.9 Neut % (Auto) 81.2 H Lymph % (Auto) 11.8 [place] % (Auto) 6.7 Eos % (Auto) 0.1 Baso % (Auto) 0.2 Neut # (Auto) 8.0 H Lymph # (Auto) 1.2 [place] # (Auto) 0.7 Eos # (Auto) 0.0 Baso # (Auto) 0.0 WBC Differential . Differential Comment Auto diff final PT 10.4 INR 1.0 APTT 23.8 L POC Sodium Sodium POC Potassium Potassium POC Chloride Chloride Carbon Dioxide Anion Gap POC BUN BUN Creatinine POC Creatinine Estimated GFR POC Glucose Random Glucose Calcium 9.2 Magnesium 2.4 Total Bilirubin AST ALT Alkaline Phosphatase Total Creatine Kinase 182 CK-MB (CK-2) 3.6 Troponin I Less than 0.02 L B-Natriuretic Peptide Total Protein Albumin Triglycerides Cholesterol LDL Cholesterol, Calc HDL Cholesterol Cholesterol/HDL Ratio 06/14/18 06/14/18 06/14/18 10:55 10:55 10:55 WBC RBC Hgb POC Hgb (Calc) 16.7 Hct POC Hct 49.0 MCV MCH MCHC RDW Plt Count MPV Neut % (Auto) Lymph % (Auto) [place] % (Auto) Eos % (Auto) Baso % (Auto) Neut # (Auto) Lymph # (Auto) [place] # (Auto) Eos # (Auto) Baso # (Auto) WBC Differential Differential Comment PT INR APTT POC Sodium 135 L Sodium POC Potassium 3.5 L Potassium POC Chloride 95 L Chloride Carbon Dioxide Anion Gap POC BUN 31 H BUN Creatinine POC Creatinine 1.9 H Estimated GFR POC Glucose 89 Random Glucose Calcium Magnesium Total Bilirubin AST ALT Alkaline Phosphatase Total Creatine Kinase CK-MB (CK-2) Troponin I B-Natriuretic Peptide 28 Total Protein Albumin Triglycerides 142 Cholesterol 227 H LDL Cholesterol, Calc 91 HDL Cholesterol 108.1 H Cholesterol/HDL Ratio 2.09 06/14/18 06/14/18 06/15/18 15:15 15:15 04:01 WBC 8.8 8.1 RBC 5.09 3.98 L Hgb 17.0 13.5 D POC Hgb (Calc) Hct 48.8 38.4 L POC Hct MCV 95.9 96.5 MCH 33.3 34.0 MCHC 34.8 35.2 RDW 12.2 12.1 Plt Count 302 223 MPV 8.5 8.2 Neut % (Auto) 62.7 Lymph % (Auto) 26.6 [place] % (Auto) 9.3 H Eos % (Auto) 0.9 Baso % (Auto) 0.5 Neut # (Auto) 5.1 Lymph # (Auto) 2.1 [place] # (Auto) 0.7 Eos # (Auto) 0.1 Baso # (Auto) 0.0 WBC Differential . Differential Comment Auto diff final PT INR APTT POC Sodium Sodium 135 L POC Potassium Potassium 4.1 POC Chloride Chloride 98 Carbon Dioxide 28.1 Anion Gap 9 POC BUN BUN 31 H Creatinine 1.53 H POC Creatinine Estimated GFR 56 L POC Glucose Random Glucose 86 Calcium 8.7 Magnesium 2.1 Total Bilirubin 1.3 H AST 32 ALT 27 Alkaline Phosphatase 117 Total Creatine Kinase CK-MB (CK-2) Troponin I B-Natriuretic Peptide Total Protein 7.9 Albumin 3.9 Triglycerides Cholesterol LDL Cholesterol, Calc HDL Cholesterol Cholesterol/HDL Ratio 06/15/18 04:01 WBC RBC Hgb POC Hgb (Calc) Hct POC Hct MCV MCH MCHC RDW Plt Count MPV Neut % (Auto) Lymph % (Auto) [place] % (Auto) Eos % (Auto) Baso % (Auto) Neut # (Auto) Lymph # (Auto) [place] # (Auto) Eos # (Auto) Baso # (Auto) WBC Differential Differential Comment PT INR APTT POC Sodium Sodium 137 POC Potassium Potassium 3.6 POC Chloride Chloride 103 Carbon Dioxide 24.9 Anion Gap 9 POC BUN BUN 32 H Creatinine 1.37 H POC Creatinine Estimated GFR 63 L POC Glucose Random Glucose 76 Calcium 7.9 L D Magnesium 2.0 Total Bilirubin 1.2 H AST 16 ALT 18 Alkaline Phosphatase 84 Total Creatine Kinase CK-MB (CK-2) Troponin I 0.03 B-Natriuretic Peptide Total Protein 5.6 L D Albumin 2.8 L D Triglycerides Cholesterol LDL Cholesterol, Calc HDL Cholesterol Cholesterol/HDL Ratio - Imaging Impressions Abdomen/Bladder Ultrasound 06/14/18 00:00 CONCLUSION: 1. Increased echotexture characteristic of medical renal disease. No hydronephrosis. No perinephric fluid. Bladder unremarkable. Chest X-Ray 06/14/18 10:53 CONCLUSION: No acute cardiopulmonary abnormality is identified. - Procedures None Assessment and Plan - Plan ASSESSMENT: Chest pain rule out ACS Hypertensive emergency Kidney injury Hypokalemia Alcohol abuse/dependence Emphysema Smoking PLAN: NEURO: -Watch closely for alcohol withdrawal patient admits to drinking a sixpack beer +3-4 drinks of vodka most days a week -Advised to completely quit drinking -CIWA if there is evidence of withdrawal -Supplement multivitamin thiamine RESP: -DuoNeb every 2 hours as needed -Advised to quit smoking CV: -On arrival blood pressure was 202/120 and was started on nitro infusion -Emergently taken to [facility] for probable STEMI, but catheter showed 50% LAD lesion without obstruction -Currently off nitroglycerin gtt and on Cleviprex gtt. -Started on amlodipine 10 mg daily and metoprolol 25 mg twice daily -Cannot use diuretics or RENATA inhibitors due to acute kidney injury -Normal saline IV fluids at 100 ml per hour -2D echo serial troponins -Check lipid profile, statins if indicated -Continue aspirin -Patient admits to noncompliance with blood pressure medications Hold Catapres if his systolic blood pressure is under 130 GI: -Cardiac diet, famotidine : -Monitor renal function closely. Strict intake output -Check renal ultrasound -Normal saline at 100 mL/h ID: -No indication for antibiotics HEME: -Monitor CBC, coags ENDO: -Electrolyte replacement per protocol PROPH: -Bilateral lower extremity SCDs. Lovenox from am/IV famotidine LINES: -Utilize peripheral IVs Code Status: Full code Discussed Condition With: RN and patient Discharge Planning: Once blood pressure is stable
[2018-06-15 11:17] LABS: Free T4 (Free Thyroxine) 1.04 ng/dL (0.76-1.46); Thyroid Stimulating Hormone 1.25 uIU/mL (0.358-3.740)
--- NOTE | 2018-06-15 11:57 | P.PNCA ---
Subjective Interval history: No complaints Medications and Allergies Active Medications: Active Medications Albuterol (Duoneb Neb (Prn)) 1 ampul NEB Q2HR NEB PRN PRN Reason: SHORTNESS OF BREATH Amlodipine Besylate (Norvasc) 10 mg PO DAILY [facility] Last Admin: 06/15/18 08:38 Dose: 10 mg Aspirin (Ecotrin) 81 mg PO DAILY [facility] Last Admin: 06/15/18 08:38 Dose: 81 mg Enoxaparin Sodium (Lovenox Inj) 30 mg SQ DAILY [facility] Last Admin: 06/15/18 08:38 Dose: 30 mg Sodium Chloride (Ns Inj) 1,000 mls @ 100 mls/hr IV.CONT .Q10H [facility] Last Admin: 06/15/18 08:39 Dose: 100 mls/hr Multivitamins 10 ml/ Thiamine HCl 100 mg/ Folic Acid 1 mg/Sodium Chloride 511.2 mls @ 125 mls/hr IV.SIG Q24H [facility] Stop: 06/16/18 19:06 Last Infusion: 06/15/18 07:01 Dose: 0 mls/hr Potassium Chloride (Kcl 40 Meq Premix Inj) 40 meq in 100 mls @ 25 mls/hr IV.SIG Q2H PRN PRN Reason: For Potassium 2.8 - 3.2 mEq/L Potassium Chloride (Kcl 20 Meq Premix Inj) 20 meq in 100 mls @ 50 mls/hr IV.SIG Q2H PRN PRN Reason: For Potassium 3.3 - 3.5 mEq/L Last Infusion: 06/14/18 17:37 Dose: 0 mls/hr Potassium Chloride (Kcl 40 Meq Premix Inj) 40 meq in 100 mls @ 25 mls/hr IV.SIG UNSCH PRN PRN Reason: For Potassium 3.3 - 3.5 mEq/L Sodium Phosphate 30 mmol/ (Sodium Chloride) 260 mls @ 42 mls/hr IV.SIG UNSCH PRN PRN Reason: For Phosphorus < 2.5 mg/dL Potassium Phosphate 30 mmol/ (Sodium Chloride) 260 mls @ 42 mls/hr IV.SIG UNSCH PRN PRN Reason: SEE LABEL COMMENTS Magnesium Sulfate 4 gm/ Sodium (Chloride) 100 mls @ 50 mls/hr IV.SIG UNSCH PRN PRN Reason: For Magnesium 0.9 - 1.1 mg/dL Potassium Chloride (Kcl 20 Meq Premix Inj) 20 meq in 100 mls @ 50 mls/hr IV.SIG Q2H PRN PRN Reason: For Potassium 2.8 - 3.2 mEq/L Magnesium Sulfate 2 gm/ Sodium (Chloride) 100 mls @ 50 mls/hr IV.SIG UNSCH PRN PRN Reason: For Magnesium 1.2 - 1.6 mg/dL Labetalol HCl (Trandate Inj) 20 mg IV.PUSH Q4H PRN PRN Reason: SBP>160, DBP>90 Magnesium Oxide (Mag-Ox) 800 mg PO UNSCH PRN PRN Reason: For Magnesium 1.2 - 1.6 mg/dL Metoprolol Tartrate (Lopressor) 25 mg PO BID [facility] Potassium Bicarb/Potassium Chloride (K-Lyte Cl Eff) 50 meq PO UNSCH PRN PRN Reason: For Potassium 3.3 - 3.5 mEq/L Last Admin: 06/14/18 16:22 Dose: 50 meq Potassium Phosphate (K-Phos Original) 2,000 mg PO Q4H PRN PRN Reason: Phosphorus Less Than 2.5 mg/dL Potassium Phosphate (K-Phos Original) 2,000 mg PO UNSCH PRN PRN Reason: SEE LABEL COMMENTS Sodium Chloride (Ns Flush) 2 ml IV.FLUSH PRN PRN PRN Reason: FLUSH AFTER USING IV ACCESS Sodium Chloride (Ns Flush) 2 ml IV.FLUSH PRN PRN PRN Reason: FLUSH AFTER USING IV ACCESS Allergies Allergy/AdvReac Type Severity Reaction Status Date / Time No Known Allergies Allergy Verified 06/14/18 10:41 Physical Exam Vital signs: Vital Signs 06/14/18 14:23 06/14/18 16:00 06/14/18 16:27 Temperature 98.4 F Pulse Rate 73 78 Respiratory Rate 14 14 Blood Pressure 160/88 H 104/70 Pulse Oximetry 96 96 06/14/18 20:00 06/14/18 21:27 06/15/18 00:00 Temperature 98.6 F 97.9 F Pulse Rate 74 77 Respiratory Rate 18 20 Blood Pressure 127/74 113/70 Pulse Oximetry 99 97 06/15/18 04:00 06/15/18 07:00 06/15/18 07:25 Temperature 98.6 F 98.4 F Pulse Rate 66 63 61 Respiratory Rate 18 16 Blood Pressure 114/66 117/71 Pulse Oximetry 97 06/15/18 09:00 Temperature Pulse Rate 64 Respiratory Rate Blood Pressure Pulse Oximetry Intake & Output 06/14/18 06/15/18 06/15/18 18:59 06:59 18:59 Intake Total 1020 / 1020 1720 / 1720 1511 / 1511 Output Total 850 / 850 Balance 170 / 170 1720 / 1720 1511 / 1511 Weight 63.503 kg 63.5 kg Intake: IV 420 / 420 1000 / 1000 1511 / 1511 Cleviprex Inj 25 mg In 50 ml @ 50 / 50 1 MG/HR 2 mls/hr IV.CONT TITRATE PRN Rx#:[id number] Nitroglycerin Drip Premix 50 mg 20 / 20 In 250 ml @ Per Protocol IV. CONT TITRATE PRN Rx#:[id number] NS Inj 1,000 ML @ 100 mls/hr IV 1000 / 1000 1000 / 1000 .CONT .Q10H [facility] Rx#:[id number] MVI-12 Inj 10 ML Thiamine Inj 511 / 511 100 MG Folvite Inj 1 MG In NS Inj 500 ML @ 125 mls/hr IV.SIG Q24H [facility] Rx#:[id number] KCl 20 mEq Premix Inj 20 meq In 50 / 50 100 ml @ 50 mls/hr IV.SIG Q2H PRN Rx#:[id number] NS Inj 1,000 ML @ 30 mls/hr IV. 300 / 300 SIG .Q24H [facility] Rx#:[id number] Oral 600 / 600 720 / 720 Output: Urine 850 / 850 Other: # Voids 2 Date of Last Bowel Movement 06/14/18 06/15/18 06/15/18 # Bowel Movements 2 Narrative: Alert Chest clear CV S1S2 RRR Abd soft Right groin OK Ext no edema Results 06/15/18 04:01 06/15/18 04:01 Cardiac Enzymes 06/14/18 06/14/18 06/14/18 Range/Units 10:55 10:55 15:15 AST 32 (15-37) U/L CK-MB (CK-2) 3.6 (0.5-3.6) ng/mL Troponin I Less than 0.02 L (0.02-0.05) ng/mL B-Natriuretic Peptide 28 (0-100) pg/mL 06/15/18 Range/Units 04:01 AST 16 (15-37) U/L CK-MB (CK-2) (0.5-3.6) ng/mL Troponin I 0.03 (0.02-0.05) ng/mL B-Natriuretic Peptide (0-100) pg/mL Coagulation 06/14/18 06/14/18 Range/Units 10:55 10:55 PT 10.4 (9.8-11.6) sec APTT 23.8 L (24.3-30.1) sec B-Natriuretic Peptide 28 (0-100) pg/mL Lipids 06/14/18 Range/Units 10:55 Triglycerides 142 (42-150) mg/dL Cholesterol 227 H (120-200) mg/dL HDL Cholesterol 108.1 H (40.0-60.0) mg/dL Cholesterol/HDL Ratio 2.09 Ratio CBC 06/14/18 06/14/18 06/15/18 Range/Units 10:55 15:15 04:01 WBC 9.9 8.8 8.1 (4.0-11.0) th/mm3 RBC 5.24 5.09 3.98 L (4.50-5.90) mil/mm3 Hgb 17.7 H 17.0 13.5 D (13.0-17.0) gm/dL Hct 50.4 48.8 38.4 L (39.0-51.0) % Plt Count 297 302 223 (150-450) th/mm3 Neut # (Auto) 8.0 H 5.1 (1.8-7.7) th/mm3 Lymph # (Auto) 1.2 2.1 (1.0-4.8) th/mm3 [place] # (Auto) 0.7 0.7 (0.0-0.9) th/mm3 Eos # (Auto) 0.0 0.1 (0.0-0.4) th/mm3 Baso # (Auto) 0.0 0.0 (0.0-0.2) th/mm3 Comprehensive Metabolic Panel 06/14/18 06/14/18 06/15/18 Range/Units 10:55 15:15 04:01 Sodium 135 L 137 (136-145) meq/L Potassium 4.1 3.6 (3.5-5.1) meq/L Chloride 98 103 (98-107) meq/L Carbon Dioxide 28.1 24.9 (21.0-32.0) meq/L BUN 31 H 32 H (7-18) mg/dL Creatinine 1.53 H 1.37 H (0.60-1.30) mg/dL Calcium 9.2 8.7 7.9 L D (8.5-10.1) mg/dL AST 32 16 (15-37) U/L ALT 27 18 (12-78) U/L Alkaline Phosphatase 117 84 (45-117) U/L Total Protein 7.9 5.6 L D (6.4-8.2) g/dL Albumin 3.9 2.8 L D (3.4-5.0) g/dL Intake and Output 06/14/18 06/15/18 06/15/18 22:59 06:59 14:59 Intake Total 1020 / 1020 1720 / 1720 1511 / 1511 Output Total 850 / 850 Balance 170 / 170 1720 / 1720 1511 / 1511 Intake: IV 420 / 420 1000 / 1000 1511 / 1511 Cleviprex Inj 25 mg In 50 ml @ 50 / 50 1 MG/HR 2 mls/hr IV.CONT TITRATE PRN Rx#:[id number] Nitroglycerin Drip Premix 50 mg 20 / 20 In 250 ml @ Per Protocol IV. CONT TITRATE PRN Rx#:[id number] NS Inj 1,000 ML @ 100 mls/hr IV 1000 / 1000 1000 / 1000 .CONT .Q10H [facility] Rx#:[id number] MVI-12 Inj 10 ML Thiamine Inj 511 / 511 100 MG Folvite Inj 1 MG In NS Inj 500 ML @ 125 mls/hr IV.SIG Q24H [facility] Rx#:[id number] KCl 20 mEq Premix Inj 20 meq In 50 / 50 100 ml @ 50 mls/hr IV.SIG Q2H PRN Rx#:[id number] NS Inj 1,000 ML @ 30 mls/hr IV. 300 / 300 SIG .Q24H [facility] Rx#:[id number] Oral 600 / 600 720 / 720 Output: Urine 850 / 850 Other: # Voids 2 Date of Last Bowel Movement 06/15/18 06/15/18 06/15/18 # Bowel Movements 2 Weight 63.5 kg - Imaging and Cardiology Imaging: Impressions Abdomen/Bladder Ultrasound 06/14/18 00:00 CONCLUSION: 1. Increased echotexture characteristic of medical renal disease. No hydronephrosis. No perinephric fluid. Bladder unremarkable. Chest X-Ray 06/14/18 10:53 CONCLUSION: No acute cardiopulmonary abnormality is identified. Assessment and Plan - Assessment (1) Malignant hypertension Code(s): I10 - Essential (primary) hypertension Status: Acute Plan: Stop clonidine - too risky with intermittent use of BP meds (2) Chronic kidney disease, stage 3 Code(s): N18.3 - Chronic kidney disease, stage 3 (moderate) Status: Acute (3) Noncompliance w/medication treatment due to intermit use of medication Code(s): Z91.14 - Patient's other noncompliance with medication regimen Status : Acute (4) Tobacco abuse Code(s): Z72.0 - Tobacco use Status: Acute Plan: counseled (5) 2-vessel coronary artery disease Code(s): I25.10 - Atherosclerotic heart disease of [place] coronary artery without angina pectoris Status: Acute Plan: Stenoses are not > 50%. Medical management
[2018-06-15 13:54] LABS: Hemoglobin A1c 6.2 % (4.3-6.0)
[2018-06-15] MEDS: Multivitamin Inj 10 ML, Thiamine Inj 100 MG, Folic Acid Inj 1 MG in Sodium Chlor 0.9% I... IV.SIG SCH (15:38)
[2018-06-15] MEDS: Metoprolol Tartrate 25 MG Tablet PO SCH (20:23)
[2018-06-16] MEDS: Sod Chloride 0.9% Inj 1,000 ML IV.CONT SCH (04:05)
[2018-06-16 05:53] LABS: Baso % (Auto) 0.5 % (0.0-2.0); Eos # (Auto) 0.1 th/mm3 (0.0-0.4); Eos % (Auto) 1.4 % (0.0-4.0); Hematocrit 40.8 % (39.0-51.0); Hemoglobin 14.5 gm/dL (13.0-17.0); Lymph # (Auto) 1.7 th/mm3 (1.0-4.8); Lymph % (Auto) 21.9 % (9.0-44.0); Mean Corpuscular HGB Conc 35.5 % (32.0-36.0); Mean Corpuscular Hemoglobin 33.8 pg (27.0-34.0); Mean Corpuscular Volume 95.2 fL (80.0-100.0); Mean Platelet Volume 8.5 fL (7.0-11.0); Mono # (Auto) 0.8 th/mm3 (0.0-0.9); Mono % (Auto) 10.6 % (0.0-8.0); Neut # (Auto) 5.2 th/mm3 (1.8-7.7); Neut % (Auto) 65.6 % (16.0-70.0); Platelet Count 239 th/mm3 (150-450); Red Blood Count 4.28 mil/mm3 (4.50-5.90); Red Cell Distribution Width 11.8 % (11.6-17.2)
[2018-06-16 06:11] LABS: Alanine Aminotransferase 21 U/L (12-78); Albumin 2.8 g/dL (3.4-5.0); Anion Gap 7 meq/L (5-15); Aspartate Aminotransferase 17 U/L (15-37); Blood Urea Nitrogen 18 mg/dL (7-18); Chloride 102 meq/L (98-107); Glomerular Filtration Rate 78 mL/min (>89); Glucose,Random 86 mg/dL (74-106); Magnesium 1.7 mg/dL (1.5-2.5); Potassium 3.3 meq/L (3.5-5.1); Sodium 137 meq/L (136-145)
[2018-06-16 06:16] LABS: Alkaline Phosphatase 90 U/L (45-117); Phosphorus 2.7 mg/dL (2.5-4.9); Total Protein 5.5 g/dL (6.4-8.2)
[2018-06-16] MEDS ORDERED: Iohexol 350 MG/ML 50 ML Vial (for Cath Lab) IVCONTRAST ONE (08:19)
[2018-06-16] MEDS: Metoprolol Tartrate 25 MG Tablet PO SCH (08:38)
[2018-06-16] MEDS: Enoxaparin Inj 30 MG/0.3 ML Syringe SQ SCH (08:38)
[2018-06-16] MEDS: amLODIPine 10 MG Tablet PO SCH (08:38)
[2018-06-16] MEDS ORDERED: Metoprolol Tartrate 25 MG Tablet PO SCH ×2 (09:13→21:00)
[2018-06-16 09:52] VITALS: RESP 20; O2SAT 100
--- NOTE | 2018-06-16 09:54 | P.PNIM ---
Subjective Interval history: Chief Complaint: Chest pain, Probable STEMI History of Present Illness: Patient is a 62-year-old -[place] male with history of uncontrolled hypertension, alcohol abuse, probable dependence who presented to the emergency department with chest pain. Patient admits that his blood pressure is uncontrolled he is supposed to be on 5 medication but is really not compliant. He also has history of emphysema based on CT scan. EKG showed sinus rhythm, LVH , ST elevation in V2, V3, and V4. Patient was hypertensive with blood pressure in 202/120, started on nitroglycerin infusion and given IV metoprolol. For probable acute STEMI versus early repolarization changes and Dr. Castañeda was emergently contacted. He also received aspirin. Emergently taken to the Optical Assistant showed 50% LAD lesion but no acute obstruction. Post catheterization patient was moved to the CVICU on Cleviprex and critical care medicine was consulted I evaluated the patient in the ICU. Systolic blood pressure is now in 160s his chest pain is improved he is currently on Cleviprex infusion. Patient had been placed on metoprolol 50 mg twice daily and Norvasc 10 mg daily. No RENATA inhibitors due to acute kidney injury. Patient gives a history that he had was on clonidine before but in general had been noncompliant with all the medications. I will place him on clonidine and use as needed IV labetalol to wean Cleviprex. Lipid profile had been ordered. He will be watched closely for alcohol withdrawal as he drinks 6 beers +3-4 drinks of vodka almost daily. Initiate CIWA protocol if necessary 06-15 patient has been transferred to our service today from critical care. Patient's blood pressure is too low will have to back off on some of the medications Discussed with RN and patient Denies any chest pain or palpitations at this time Has a history of being completely medically malignantly noncompliant Does not see doctors Drinks daily Smokes cigarettes Adjust medications decrease metoprolol 06-16 MEDICATIONS HAVE BEEN ADJUSTED WANTS TO GO HOME NO CHEST PAIN DW RN AND PT DC TO HOME TODAY Physical Exam Vital signs: Vital Signs 06/15/18 12:00 06/15/18 12:02 06/15/18 15:41 Temperature 98.3 F 98.7 F Pulse Rate 65 67 62 Respiratory Rate 14 16 Blood Pressure 105/60 129/83 Pulse Oximetry 94 L 06/15/18 16:00 06/15/18 20:00 06/15/18 23:00 Temperature 98.5 F Pulse Rate 66 62 64 Respiratory Rate 16 Blood Pressure 151/87 H Pulse Oximetry 97 06/16/18 00:00 06/16/18 01:00 06/16/18 02:00 Temperature 98.7 F Pulse Rate 64 63 56 L Respiratory Rate 16 Blood Pressure 143/86 H Pulse Oximetry 99 06/16/18 03:00 06/16/18 03:13 06/16/18 04:00 Temperature 98.7 F Pulse Rate 63 65 58 L Respiratory Rate 16 Blood Pressure 142/89 H Pulse Oximetry 99 06/16/18 05:00 06/16/18 05:56 06/16/18 08:00 Temperature 98.0 F Pulse Rate 59 L 60 74 Respiratory Rate 18 Blood Pressure 184/103 H Pulse Oximetry 100 Intake & Output 06/15/18 06/16/18 06/16/18 18:59 06:59 18:59 Intake Total 3151.2 / 3151.2 991.2 / 991.2 Output Total 1000 / 1000 950 / 950 Balance 2151.2 / 2151.2 41.2 / 41.2 Intake: IV 2511.2 / 2511.2 511.2 / 511.2 NS Inj 1,000 ML @ 100 mls/hr IV 1999 / 1999 .CONT .Q10H [facility] Rx#:[id number] MVI-12 Inj 10 ML Thiamine Inj 511.2 / 511.2 511.2 / 511.2 100 MG Folvite Inj 1 MG In NS Inj 500 ML @ 125 mls/hr IV.SIG Q24H [facility] Rx#:[id number] Oral 640 / 640 480 / 480 Output: Urine 1000 / 1000 950 / 950 Other: # Voids 3 Date of Last Bowel Movement 06/15/18 06/15/18 # Bowel Movements 1 Narrative: GENERAL: 62 yo -[place] male lying in bed in mild distress SKIN: Dry no obvious rashes. Warm and dry HEAD: Atraumatic. Normocephalic. EYES: Pupils equal and round. EOMI ENT: No nasal bleeding or discharge. Tongue is midline oropharynx is clear NECK: Trachea midline. No JVD. Supple CARDIOVASCULAR: Regular rate and rhythm. No murmur appreciated. No chest wall tenderness. S1-S2 no S3 or S4 RESPIRATORY: Clear to auscultation. Breath sounds equal bilaterally. GASTROINTESTINAL: Abdomen soft, non-tender, nondistended. MUSCULOSKELETAL: No obvious deformities. No clubbing. NEUROLOGICAL: Awake and alert. No obvious cranial nerve deficits. Motor grossly within normal limits. Normal speech. Results - Labs CBC & Chem 7: 06/16/18 04:56 06/16/18 04:56 Laboratory Results - last 24 hr 06/15/18 06/15/18 06/15/18 04:01 04:01 04:01 WBC RBC Hgb Hct MCV MCH MCHC RDW Plt Count MPV Neut % (Auto) Lymph % (Auto) [place] % (Auto) Eos % (Auto) Baso % (Auto) Neut # (Auto) Lymph # (Auto) [place] # (Auto) Eos # (Auto) Baso # (Auto) WBC Differential Differential Comment Sodium Potassium Chloride Carbon Dioxide Anion Gap BUN Creatinine Estimated GFR Random Glucose Hemoglobin A1c 6.2 H Calcium Phosphorus Magnesium Total Bilirubin AST ALT Alkaline Phosphatase Total Protein Albumin TSH 1.250 Cancelled Free T4 1.04 06/16/18 06/16/18 04:56 04:56 WBC 8.0 RBC 4.28 L Hgb 14.5 Hct 40.8 MCV 95.2 MCH 33.8 MCHC 35.5 RDW 11.8 Plt Count 239 MPV 8.5 Neut % (Auto) 65.6 Lymph % (Auto) 21.9 [place] % (Auto) 10.6 H Eos % (Auto) 1.4 Baso % (Auto) 0.5 Neut # (Auto) 5.2 Lymph # (Auto) 1.7 [place] # (Auto) 0.8 Eos # (Auto) 0.1 Baso # (Auto) 0.0 WBC Differential . Differential Comment Auto diff final Sodium 137 Potassium 3.3 L Chloride 102 Carbon Dioxide 28.0 Anion Gap 7 BUN 18 Creatinine 1.14 Estimated GFR 78 L Random Glucose 86 Hemoglobin A1c Calcium 8.0 L Phosphorus 2.7 Magnesium 1.7 Total Bilirubin 0.8 AST 17 ALT 21 Alkaline Phosphatase 90 Total Protein 5.5 L Albumin 2.8 L TSH Free T4 - Imaging Abdomen/Bladder Ultrasound 06/14/18 00:00 CONCLUSION: 1. Increased echotexture characteristic of medical renal disease. No hydronephrosis. No perinephric fluid. Bladder unremarkable. Chest X-Ray 06/14/18 10:53 CONCLUSION: No acute cardiopulmonary abnormality is identified. - Procedures None Assessment and Plan - Plan ASSESSMENT: Chest pain rule out ACS Hypertensive emergency Kidney injury Hypokalemia Alcohol abuse/dependence Emphysema Smoking PLAN: NEURO: -Watch closely for alcohol withdrawal patient admits to drinking a sixpack beer +3-4 drinks of vodka most days a week -Advised to completely quit drinking -CIWA if there is evidence of withdrawal -Supplement multivitamin thiamine RESP: -DuoNeb every 2 hours as needed -Advised to quit smoking CV: -On arrival blood pressure was 202/120 and was started on nitro infusion -Emergently taken to Optical Assistant for probable STEMI, but catheter showed 50% LAD lesion without obstruction -Currently off nitroglycerin gtt and on Cleviprex gtt. -Started on amlodipine 10 mg daily and metoprolol 25 mg twice daily -Cannot use diuretics or RENATA inhibitors due to acute kidney injury -Normal saline IV fluids at 100 ml per hour -2D echo serial troponins -Check lipid profile, statins if indicated -Continue aspirin -Patient admits to noncompliance with blood pressure medications Hold Catapres if his systolic blood pressure is under 130 GI: -Cardiac diet, famotidine : -Monitor renal function closely. Strict intake output -Check renal ultrasound -Normal saline at 100 mL/h ID: -No indication for antibiotics HEME: -Monitor CBC, coags ENDO: -Electrolyte replacement per protocol PROPH: -Bilateral lower extremity SCDs. Lovenox from am/IV famotidine LINES: -Utilize peripheral IVs DC TO HOME TODAY RX WRITTEN SEE MED REC Code Status: FULL CODE Discussed Condition With: RN AND PATIENT Discharge Planning: DC TO HOME TODAY
--- NOTE | 2018-06-16 10:01 | P.DS ---
Date of admission: 06/14/18 11:16 Primary care physician: UNKNOWN Attending physician on discharge: Phoenix Roy Anticipated date of discharge: 06/16/18 Brief History from admission: Chief Complaint: Chest pain, Probable STEMI History of Present Illness: Patient is a 62-year-old -[place]ian male with history of uncontrolled hypertension, alcohol abuse, probable dependence who presented to the emergency department with chest pain. Patient admits that his blood pressure is uncontrolled he is supposed to be on 5 medication but is really not compliant. He also has history of emphysema based on CT scan. EKG showed sinus rhythm, LVH , ST elevation in V2, V3, and V4. Patient was hypertensive with blood pressure in 202/120, started on nitroglycerin infusion and given IV metoprolol. For probable acute STEMI versus early repolarization changes and Dr. Castañeda was emergently contacted. He also received aspirin. Emergently taken to the Embedded Linux Engineer showed 50% LAD lesion but no acute obstruction. Post catheterization patient was moved to the CVICU on Cleviprex and critical care medicine was consulted I evaluated the patient in the ICU. Systolic blood pressure is now in 160s his chest pain is improved he is currently on Cleviprex infusion. Patient had been placed on metoprolol 50 mg twice daily and Norvasc 10 mg daily. No RENATA inhibitors due to acute kidney injury. Patient gives a history that he had was on clonidine before but in general had been noncompliant with all the medications. I will place him on clonidine and use as needed IV labetalol to wean Cleviprex. Lipid profile had been ordered. He will be watched closely for alcohol withdrawal as he drinks 6 beers +3-4 drinks of vodka almost daily. Initiate CIWA protocol if necessary 06-15 patient has been transferred to our service today from critical care. Patient's blood pressure is too low will have to back off on some of the medications Discussed with RN and patient Denies any chest pain or palpitations at this time Has a history of being completely medically malignantly noncompliant Does not see doctors Drinks daily Smokes cigarettes Adjust medications decrease metoprolol 06-16 MEDICATIONS HAVE BEEN ADJUSTED WANTS TO GO HOME NO CHEST PAIN DW RN AND PT DC TO HOME TODAY Patient update on day of discharge: Chief Complaint: Chest pain, Probable STEMI History of Present Illness: Patient is a 62-year-old -[place]ian male with history of uncontrolled hypertension, alcohol abuse, probable dependence who presented to the emergency department with chest pain. Patient admits that his blood pressure is uncontrolled he is supposed to be on 5 medication but is really not compliant. He also has history of emphysema based on CT scan. EKG showed sinus rhythm, LVH , ST elevation in V2, V3, and V4. Patient was hypertensive with blood pressure in 202/120, started on nitroglycerin infusion and given IV metoprolol. For probable acute STEMI versus early repolarization changes and Dr. Castañeda was emergently contacted. He also received aspirin. Emergently taken to the Embedded Linux Engineer showed 50% LAD lesion but no acute obstruction. Post catheterization patient was moved to the CVICU on Cleviprex and critical care medicine was consulted I evaluated the patient in the ICU. Systolic blood pressure is now in 160s his chest pain is improved he is currently on Cleviprex infusion. Patient had been placed on metoprolol 50 mg twice daily and Norvasc 10 mg daily. No RENATA inhibitors due to acute kidney injury. Patient gives a history that he had was on clonidine before but in general had been noncompliant with all the medications. I will place him on clonidine and use as needed IV labetalol to wean Cleviprex. Lipid profile had been ordered. He will be watched closely for alcohol withdrawal as he drinks 6 beers +3-4 drinks of vodka almost daily. Initiate CIWA protocol if necessary 06-15 patient has been transferred to our service today from critical care. Patient's blood pressure is too low will have to back off on some of the medications Discussed with RN and patient Denies any chest pain or palpitations at this time Has a history of being completely medically malignantly noncompliant Does not see doctors Drinks daily Smokes cigarettes Adjust medications decrease metoprolol 06-16 MEDICATIONS HAVE BEEN ADJUSTED WANTS TO GO HOME NO CHEST PAIN DW RN AND PT DC TO HOME TODAY DS: Diagnosis - Discharge Diagnosis (1) Chronic kidney disease, stage 3 Status: Chronic (2) Malignant hypertension Status: Chronic (3) Noncompliance w/medication treatment due to intermit use of medication Status: Chronic (4) Tobacco abuse Status: Chronic DS: Medications - Discharge Medications Prescriptions: amlodipine [Norvasc] 10 mg PO DAILY #30 tab aspirin 81 mg PO DAILY #30 tab folic acid 1 mg PO DAILY #30 tab metoprolol tartrate 50 mg PO BID #60 tab [id number] K [Adults Multivitamin] 1 tab PO DAILY #30 tab nicotine [Nicoderm CQ] 1 patch TRANSDERMAL Q24H #30 ea thiamine mononitrate (vit B1) [Vitamin B-1 (mononitrate)] 100 mg PO DAILY #30 tab DS: Summary Hospital Course: Chief Complaint: Chest pain, Probable STEMI History of Present Illness: Patient is a 62-year-old -[place]ian male with history of uncontrolled hypertension, alcohol abuse, probable dependence who presented to the emergency department with chest pain. Patient admits that his blood pressure is uncontrolled he is supposed to be on 5 medication but is really not compliant. He also has history of emphysema based on CT scan. EKG showed sinus rhythm, LVH , ST elevation in V2, V3, and V4. Patient was hypertensive with blood pressure in 202/120, started on nitroglycerin infusion and given IV metoprolol. For probable acute STEMI versus early repolarization changes and Dr. Castañeda was emergently contacted. He also received aspirin. Emergently taken to the Embedded Linux Engineer showed 50% LAD lesion but no acute obstruction. Post catheterization patient was moved to the CVICU on Cleviprex and critical care medicine was consulted I evaluated the patient in the ICU. Systolic blood pressure is now in 160s his chest pain is improved he is currently on Cleviprex infusion. Patient had been placed on metoprolol 50 mg twice daily and Norvasc 10 mg daily. No RENATA inhibitors due to acute kidney injury. Patient gives a history that he had was on clonidine before but in general had been noncompliant with all the medications. I will place him on clonidine and use as needed IV labetalol to wean Cleviprex. Lipid profile had been ordered. He will be watched closely for alcohol withdrawal as he drinks 6 beers +3-4 drinks of vodka almost daily. Initiate CIWA protocol if necessary 10-28 patient has been transferred to our service today from critical care. Patient's blood pressure is too low will have to back off on some of the medications Discussed with RN and patient Denies any chest pain or palpitations at this time Has a history of being completely medically malignantly noncompliant Does not see doctors Drinks daily Smokes cigarettes Adjust medications decrease metoprolol 10- MEDICATIONS HAVE BEEN ADJUSTED WANTS TO GO HOME NO CHEST PAIN DW RN AND PT DC TO HOME TODAY - Time Spent with Patient Total time spent providing and/or coordinating discharge services: Greater than 30 minutes - Quality: VTE Deep Vein Thrombosis/Pulmonary Embolism Present on Admission: No Exam Vital signs: Vital Signs 06/15/18 12:00 06/15/18 12:02 06/15/18 15:41 Temperature 98.3 F 98.7 F Pulse Rate 65 67 62 Respiratory Rate 14 16 Blood Pressure 105/60 129/83 Pulse Oximetry 94 L 06/15/18 16:00 06/15/18 20:00 06/15/18 23:00 Temperature 98.5 F Pulse Rate 66 62 64 Respiratory Rate 16 Blood Pressure 151/87 H Pulse Oximetry 97 06/16/18 00:00 06/16/18 01:00 06/16/18 02:00 Temperature 98.7 F Pulse Rate 64 63 56 L Respiratory Rate 16 Blood Pressure 143/86 H Pulse Oximetry 99 06/16/18 03:00 06/16/18 03:13 06/16/18 04:00 Temperature 98.7 F Pulse Rate 63 65 58 L Respiratory Rate 16 Blood Pressure 142/89 H Pulse Oximetry 99 06/16/18 05:00 06/16/18 05:56 06/16/18 08:00 Temperature 98.0 F Pulse Rate 59 L 60 74 Respiratory Rate 18 Blood Pressure 184/103 H Pulse Oximetry 100 06/16/18 09:52 Temperature Pulse Rate 65 Respiratory Rate 20 Blood Pressure 179/101 H Pulse Oximetry 100 Intake & Output 06/15/18 06/16/18 06/16/18 18:59 06:59 18:59 Intake Total 3151.2 / 3151.2 991.2 / 991.2 Output Total 1000 / 1000 950 / 950 Balance 2151.2 / 2151.2 41.2 / 41.2 Intake: IV 2511.2 / 2511.2 511.2 / 511.2 NS Inj 1,000 ML @ 100 mls/hr IV 1999 / 1999 .CONT .Q10H [facility] Rx#:[id number] MVI-12 Inj 10 ML Thiamine Inj 511.2 / 511.2 511.2 / 511.2 100 MG Folvite Inj 1 MG In NS Inj 500 ML @ 125 mls/hr IV.SIG Q24H [facility] Rx#:[id number] Oral 640 / 640 480 / 480 Output: Urine 1000 / 1000 950 / 950 Other: # Voids 3 Date of Last Bowel Movement 06/15/18 06/15/18 # Bowel Movements 1 Narrative: GENERAL: 62 yo -[place] male lying in bed in mild distress SKIN: Dry no obvious rashes. Warm and dry HEAD: Atraumatic. Normocephalic. EYES: Pupils equal and round. EOMI ENT: No nasal bleeding or discharge. Tongue is midline oropharynx is clear NECK: Trachea midline. No JVD. Supple CARDIOVASCULAR: Regular rate and rhythm. No murmur appreciated. No chest wall tenderness. S1-S2 no S3 or S4 RESPIRATORY: Clear to auscultation. Breath sounds equal bilaterally. GASTROINTESTINAL: Abdomen soft, non-tender, nondistended. MUSCULOSKELETAL: No obvious deformities. No clubbing. NEUROLOGICAL: Awake and alert. No obvious cranial nerve deficits. Motor grossly within normal limits. Normal speech. Results Procedures completed during hospitalization: None Completed studies during hospitalization: Laboratory Results WBC 8.0 th/mm3 (4.0-11.0) 06/16/18 04:56 RBC 4.28 mil/mm3 (4.50-5.90) L 06/16/18 04:56 Hgb 14.5 gm/dL (13.0-17.0) 06/16/18 04:56 POC Hgb (Calc) 16.7 g/dL (13.0-17.0) 06/14/18 10:55 Hct 40.8 % (39.0-51.0) 06/16/18 04:56 POC Hct 49.0 % (39-51.0) 06/14/18 10:55 MCV 95.2 fL (80.0-100.0) 06/16/18 04:56 MCH 33.8 pg (27.0-34.0) 06/16/18 04:56 MCHC 35.5 % (32.0-36.0) 06/16/18 04:56 RDW 11.8 % (11.6-17.2) 06/16/18 04:56 Plt Count 239 th/mm3 (150-450) 06/16/18 04:56 MPV 8.5 fL (7.0-11.0) 06/16/18 04:56 Neut % (Auto) 65.6 % (16.0-70.0) 06/16/18 04:56 Lymph % (Auto) 21.9 % (9.0-44.0) 06/16/18 04:56 [place] % (Auto) 10.6 % (0.0-8.0) H 06/16/18 04:56 Eos % (Auto) 1.4 % (0.0-4.0) 06/16/18 04:56 Baso % (Auto) 0.5 % (0.0-2.0) 06/16/18 04:56 Neut # (Auto) 5.2 th/mm3 (1.8-7.7) 06/16/18 04:56 Lymph # (Auto) 1.7 th/mm3 (1.0-4.8) 06/16/18 04:56 [place] # (Auto) 0.8 th/mm3 (0.0-0.9) 06/16/18 04:56 Eos # (Auto) 0.1 th/mm3 (0.0-0.4) 06/16/18 04:56 Baso # (Auto) 0.0 th/mm3 (0.0-0.2) 06/16/18 04:56 WBC Differential . 06/16/18 04:56 Differential Comment Auto diff final 06/16/18 04:56 PT 10.4 sec (9.8-11.6) 06/14/18 10:55 INR 1.0 Ratio 06/14/18 10:55 APTT 23.8 sec (24.3-30.1) L 06/14/18 10:55 POC Sodium 135 mmol/L (137-144) L 06/14/18 10:55 Sodium 137 meq/L (136-145) 06/16/18 04:56 POC Potassium 3.5 mmol/L (3.6-5.0) L 06/14/18 10:55 Potassium 3.3 meq/L (3.5-5.1) L 06/16/18 04:56 POC Chloride 95 mmol/L (102-111) L 06/14/18 10:55 Chloride 102 meq/L (98-107) 06/16/18 04:56 Carbon Dioxide 28.0 meq/L (21.0-32.0) 06/16/18 04:56 Anion Gap 7 meq/L (5-15) 06/16/18 04:56 POC BUN 31 mg/dL (5-21) H 06/14/18 10:55 BUN 18 mg/dL (7-18) 06/16/18 04:56 Creatinine 1.14 mg/dL (0.60-1.30) 06/16/18 04:56 POC Creatinine 1.9 mg/dL (0.6-1.3) H 06/14/18 10:55 Estimated GFR 78 mL/min (>89) L 06/16/18 04:56 POC Glucose 89 mg/dL (68-110) 06/14/18 10:55 Random Glucose 86 mg/dL (74-106) 06/16/18 04:56 Hemoglobin A1c 6.2 % (4.3-6.0) H 06/15/18 04:01 Calcium 8.0 mg/dL (8.5-10.1) L 06/16/18 04:56 Phosphorus 2.7 mg/dL (2.5-4.9) 06/16/18 04:56 Magnesium 1.7 mg/dL (1.5-2.5) 06/16/18 04:56 Total Bilirubin 0.8 mg/dL (0.2-1.0) 06/16/18 04:56 AST 17 U/L (15-37) 06/16/18 04:56 ALT 21 U/L (12-78) 06/16/18 04:56 Alkaline Phosphatase 90 U/L (45-117) 06/16/18 04:56 Total Creatine Kinase 182 U/L (39-308) 06/14/18 10:55 CK-MB (CK-2) 3.6 ng/mL (0.5-3.6) 06/14/18 10:55 Troponin I 0.03 ng/mL (0.02-0.05) 06/15/18 04:01 B-Natriuretic Peptide 28 pg/mL (0-100) 06/14/18 10:55 Total Protein 5.5 g/dL (6.4-8.2) L 06/16/18 04:56 Albumin 2.8 g/dL (3.4-5.0) L 06/16/18 04:56 Triglycerides 142 mg/dL (42-150) 06/14/18 10:55 Cholesterol 227 mg/dL (120-200) H 06/14/18 10:55 LDL Cholesterol, Calc 91 mg/dL (0-99) 06/14/18 10:55 HDL Cholesterol 108.1 mg/dL (40.0-60.0) H 06/14/18 10:55 Cholesterol/HDL Ratio 2.09 Ratio 06/14/18 10:55 TSH 1.250 uIU/mL (0.358-3.740) 06/15/18 04:01 Free T4 1.04 ng/dL (0.76-1.46) 06/15/18 04:01 Impressions Abdomen/Bladder Ultrasound 06/14/18 00:00 CONCLUSION: 1. Increased echotexture characteristic of medical renal disease. No hydronephrosis. No perinephric fluid. Bladder unremarkable. Chest X-Ray 06/14/18 10:53 CONCLUSION: No acute cardiopulmonary abnormality is identified. Labs on day of discharge: Labs from last 24 hours 06/16/18 06/16/18 06/15/18 04:56 04:56 04:01 WBC 8.0 RBC 4.28 L Hgb 14.5 Hct 40.8 MCV 95.2 MCH 33.8 MCHC 35.5 RDW 11.8 Plt Count 239 MPV 8.5 Neut % (Auto) 65.6 Lymph % (Auto) 21.9 [place] % (Auto) 10.6 H Eos % (Auto) 1.4 Baso % (Auto) 0.5 Neut # (Auto) 5.2 Lymph # (Auto) 1.7 [place] # (Auto) 0.8 Eos # (Auto) 0.1 Baso # (Auto) 0.0 WBC Differential . Differential Comment Auto diff final Sodium 137 Potassium 3.3 L Chloride 102 Carbon Dioxide 28.0 Anion Gap 7 BUN 18 Creatinine 1.14 Estimated GFR 78 L Random Glucose 86 Hemoglobin A1c Calcium 8.0 L Phosphorus 2.7 Magnesium 1.7 Total Bilirubin 0.8 AST 17 ALT 21 Alkaline Phosphatase 90 Total Protein 5.5 L Albumin 2.8 L TSH Cancelled Free T4 06/15/18 06/15/18 04:01 04:01 WBC RBC Hgb Hct MCV MCH MCHC RDW Plt Count MPV Neut % (Auto) Lymph % (Auto) [place] % (Auto) Eos % (Auto) Baso % (Auto) Neut # (Auto) Lymph # (Auto) [place] # (Auto) Eos # (Auto) Baso # (Auto) WBC Differential Differential Comment Sodium Potassium Chloride Carbon Dioxide Anion Gap BUN Creatinine Estimated GFR Random Glucose Hemoglobin A1c 6.2 H Calcium Phosphorus Magnesium Total Bilirubin AST ALT Alkaline Phosphatase Total Protein Albumin TSH 1.250 Free T4 1.04 - Impressions ITS Impressions Abdomen/Bladder Ultrasound 06/14/18 00:00 CONCLUSION: 1. Increased echotexture characteristic of medical renal disease. No hydronephrosis. No perinephric fluid. Bladder unremarkable. Chest X-Ray 06/14/18 10:53 CONCLUSION: No acute cardiopulmonary abnormality is identified. Discharge Plan - Discharge Disposition Patient Disposition: Discharge Home - Discharge Condition Condition: Good - Discharge Order Discharge Orders: Discharge Order (Routine); Ordered 06/16/18 Ordered By: Phoenix Roy - Discharge Details Anticipated Discharge Date: 06/16/18 Discharge Comment: DC TO HOME - Physicians Team Primary Care Provider: UNKNOWN, Attending Provider: Phoenix Roy Other Providers: Karma Berry MD ; Timothy Castañeda MD
[2018-06-16 10:32] VITALS: BP 164/83; PULSE 65; TEMP 98.3
== END 2018-06-16 11:42 | disposition home or self-care (01) ==
LOC: NEPC 10:27 → NEDA 11:16 → HCVI 13:03 → HCPC 06-15 17:42
PROVIDERS: ADMIT Hospitalist; ATTEND Hospitalist